=== PATIENT | male | born 1955 | race Caucasian/White ===

== ENCOUNTER 2021-09-07 16:12 | Inpatient (IN) | payer MEDICAID, SELFPAY ==
[~2021-09-07] VITALS: Ht 177.8 cm; Wt 78.9 kg
--- NOTE | 2021-09-07 16:12 | NUR ---
SHANTI WINSLOW TAKEN TO BED 11
[2021-09-07 16:20] VITALS: BP 130/56
--- NOTE | 2021-09-07 16:31 | NUR ---
XRAY AT BEDSIDE
[2021-09-07 17:03] LABS: ALBUMIN 2.1 g/dL (3.4-5.0); ANION GAP 4.1 (8-16); CARBON DIOXIDE 36.7 mmol/L (21-32); CREATININE 0.4 mg/dL (0.6-1.3); POTASSIUM 4.8 mmol/L (3.5-5.1); TOTAL BILIRUBIN 0.4 mg/dL (0.0-1.0)
[2021-09-07 17:41] LABS: BASOPHILS % (AUTO) 0.1 % (0.0-2.0); EOSINOPHILS % (AUTO) 0.1 % (0.0-4.0); LYMPHOCYTES # (AUTO) 0.7 K/uL (2.0-11.5); LYMPHOCYTES % (AUTO) 8.6 % (20.5-51.1); MEAN CORPUSCULAR HEMOGLOBIN 32 pg (27-31); MEAN CORPUSCULAR HGB CONC 33 g/dL (33-37); MEAN CORPUSCULAR VOLUME 94.7 fL (80-94); MONOCYTES # (AUTO) 0.5 K/uL (0.8-1.0); MONOCYTES % (AUTO) 5.5 % (1.7-9.3); NEUTROPHILS # (AUTO) 7.3 K/uL (1.8-7.7); NEUTROPHILS % (AUTO) 85.7 % (42.2-75.2); PLATELET COUNT (AUTO) 314 K/uL (140-450); RED BLOOD CELL COUNT(AUTO) 2.53 MIL/uL (4.20-6.10); RED CELL DISTRIBUTION WIDTH 17.3 % (11.6-13.7); WHITE BLOOD COUNT (AUTO) 8.5 K/uL (4.8-10.8)
[2021-09-07 18:45] LABS: PROTHROMBIN TIME 9.5 secs (10.8-13.4)
[2021-09-07 19:20] LABS: BASOPHILS % (AUTO) 0.3 % (0.0-2.0); HEMATOCRIT 24.9 % (36-52); HEMOGLOBIN 8.1 g/dL (12.0-18.0); LYMPHOCYTES # (AUTO) 0.9 K/uL (2.0-11.5); LYMPHOCYTES % (AUTO) 9.8 % (20.5-51.1); MEAN CORPUSCULAR HEMOGLOBIN 31 pg (27-31); MEAN CORPUSCULAR HGB CONC 33 g/dL (33-37); MONOCYTES # (AUTO) 0.4 K/uL (0.8-1.0); MONOCYTES % (AUTO) 4.3 % (1.7-9.3); NEUTROPHILS # (AUTO) 7.5 K/uL (1.8-7.7); NEUTROPHILS % (AUTO) 85.6 % (42.2-75.2); PLATELET COUNT (AUTO) 312 K/uL (140-450); RED BLOOD CELL COUNT(AUTO) 2.62 MIL/uL (4.20-6.10); RED CELL DISTRIBUTION WIDTH 17.6 % (11.6-13.7); WHITE BLOOD COUNT (AUTO) 8.8 K/uL (4.8-10.8)
--- NOTE | 2021-09-07 19:20 | NUR ---
RECEIVED REPORT FROM AUNDREA GARCIA AND MARLA GARCIA FOR CONTINUATION OF CARE.
--- NOTE | 2021-09-07 19:20 | NUR ---
Pt report given to JENNIFER RN. Transfer of care at this time.
--- NOTE | 2021-09-07 21:07 | NUR ---
PERICARE PROVIDED FOR PATIENT. PATIENT HAD A MEDIUM WHOLE BM WITH SOME BLOOD. ERMD AWARE. CHANGED PATIENT AND REPOSITIONED- PATIENT TOLERATED WELL. SAFETY MEASURES ARE IN PLACE, PATIENT PLACED ON MONITOR AND WILL CONTINUE TO MONITOR PATIENT.
[2021-09-07 22:12] VITALS: BP 92/53
--- NOTE | 2021-09-07 22:12 | NUR ---
RECEIVED PT TRACH TO [employer] R860 VENTILATOR WITH A SHILEY 8.0 DCT SETTINGS AC VT450, RR14, PEEP+5, FIO2 35%. NO SIGNS OF RESPIRATORY DISTRESS NOTED AT THIS TIME PT'S CURRENT SATURATION IS 98%. ANTERIOR AUSCULTATION REVEALED BS COARSE CRACKLES THROUGHOUT, SX MODERATE BRANCH THICK SECRETIONS, LARGE AMOUNT OF YELLOW THICK SECRETIONS DRAINING FROM STOMA. CHANGED DRESSINGS AND TRACH TIES AT THIS TIME. HOB ELEVATEDVENT PLUGGED INTO RED OUTLET. WILL CONTINUE TO MONITOR.
--- NOTE | 2021-09-07 22:41 | NUR ---
ERMD AT BEDSIDE REASSESSING PATIENT AND READINESS TO BE D/C
--- NOTE | 2021-09-07 22:56 | NUR ---
CALLED THE FACILITY, NO ANSWER AT THIS TIME. PLACD ON HOLD FOR 20MIN. WILL CALL AT LATER , AT A MORE CONVINIENT TIME.
--- NOTE | 2021-09-07 22:58 | NUR ---
PRISCILLA COLLECTED AND WALKED TO LAB
--- NOTE | 2021-09-07 23:55 | NUR ---
attempted to suction patient with some success. unable to correct the alarms going off the vent machines. RT called for patient.
--- NOTE | 2021-09-08 01:35 | NUR ---
Renee nava in [facility] - 09/08/21 at 0141 by OMKAR CELESTINE Samaniego to bed 9 to speak to patient about pain medications
--- NOTE | 2021-09-08 01:42 | NUR ---
RT at bedside for patient
--- NOTE | 2021-09-08 02:14 | NUR ---
Patient will be admitted to care of RADHA chavez. Admited to tele. Will go to room 108B. Belongings list completed. Report to RADHA Chavez .
[2021-09-08 02:35] VITALS: BP 150/63
--- NOTE | 2021-09-08 02:45 | NUR ---
PATIENT ARRIVED TO TELEMETRY BED 8 AT 0235 VIA GURNEY ACCOMPANIED BY RT AND ER NURSES. PATIENT IS AWAKE, ALERT, AND COOPERATIVE, ABLE TO FOLLOW COMMAND. RESPIRATION EVEN UNLABORED ON TRACH TO VENT. VENT SETTING AC RT 14V 450 PEEP 5 FIO2 35% SATTING 95%. SKIN IS WARM AND DRY. IV PATENT AND INTACT. LUNGS SOUND CRACKLES TO DIMINISHED BILATERALLY. HEART RATE REGULAR. S1&S2 NOTED. BOWEL SOUND PRESENT IN ALL QUADRANTS. ABDOMEN SOFT AND NON-TENDER. LAST BM UPON ARRIVAL BROWN WITH TINGED OF BLOOD. SACRAL REDNESS NOTED, INCONTINENT DERMATITIS NOTED. RIGHT HEEL DTI NOTED. APPLIED HEEL PROTECTORS. MRSA SWAB DONE. VITALS WERE TAKEN. ORIENT PATIENT TO ROOM, STAFF AND CALL LIGHT. PLAN OF CARE DISCUSSED. ALL SAFETY MEASURES IN PLACE. BED IS AT LOW POSITION. CALL LIGHT WITHIN REACH. WILL CONTINUE TO MONITOR.
--- NOTE | 2021-09-08 02:53 | NUR ---
TRANSFERRED PT TO TELE ROOM 108 WITH NO COMPLICATIONS.
[2021-09-08] MEDS ORDERED: ASCO500T93 PO (03:06)
[2021-09-08] MEDS ORDERED: DOCU-299 GT (03:10)
[2021-09-08] MEDS ORDERED: ACET-10509 PO (03:26)
[2021-09-08] MEDS ORDERED: PRED1TAB2 GT (03:26)
[2021-09-08] MEDS ORDERED: ACET-9882 GT (03:26)
[2021-09-08] MEDS ORDERED: LORA-476 GT (03:26)
[2021-09-08] MEDS ORDERED: FERR-13 GT (03:26)
[2021-09-08] MEDS ORDERED: LANS15EC28 PO (03:34)
[2021-09-08] MEDS ORDERED: AMIO200T66 GT (03:34)
[2021-09-08] MEDS ORDERED: MAGN400S60 GT (03:34)
[2021-09-08] MEDS ORDERED: QUET50TA GT (03:34)
[2021-09-08] MEDS ORDERED: ACET-6763 PO (03:34)
--- NOTE | 2021-09-08 04:20 | NUR ---
VITALS WERE TAKEN.
--- NOTE | 2021-09-08 05:21 | NUR ---
ORAL CARE PROVIDED, SUCTIONED PATIENT OBTAINED MODERATE AMOUNT OF WHITE SECRETION.
--- NOTE | 2021-09-08 07:18 | NUR ---
ENDORSED PATIENT TO DAY SHIFT NURSE FOR CONTINUITY OF CARE
--- NOTE | 2021-09-08 07:35 | NUR ---
RECEIVED REPORT FROM PM SHIFT FOR CONTINUITY OF CARE, PT APPEARS ASLEEP, VSS, NO ACUTE DISTRESS, SAFETY MEASURES MAINTAINED, CALL LIGHT WITHIN REACH, PT STABLE, WILL CONTINUE TO MONITOR
[2021-09-08 07:45] VITALS: BP 132/66
--- NOTE | 2021-09-08 07:45 | NUR ---
RECEIVED ON A [employer] R860 VENTILATOR PLUGGED INTO RED OUTLET TOLERATING WELL WITHOUT ADVERSE REACTIONS NOTED TO A RICKIE DCT #8 AIRWAY SECURED WITH A VIRAL TRACH TIE CUFF PRESSURE CHECKED NOTED AMBU BAG AT BEDSIDE STABLE GOOD CHEST RISE DEEP TRACHEAL SUCTION FOR LARGE THIN YELLOW SECRETIONS AIRWAY PATENT
[2021-09-08 08:00] VITALS: BP 148/70
[2021-09-08] MEDS ORDERED: HYDROcodone/APAP 5/325 MG 1 TAB TAB GT PRN (09:25)
[2021-09-08] MEDS ORDERED: LORazepam 1 MG TAB GT PRN (09:25)
[2021-09-08] MEDS ORDERED: POTASSIUM CHLORIDE 40 MEQ, LIDOCAINE MPF 1% 25 MG in NACL 0.9% 250 ML IV PRN (09:25)
[2021-09-08] MEDS ORDERED: MAG SULF 2000 MG/WATER PREMIX 50 ML IV PRN (09:25)
[2021-09-08] MEDS ORDERED: ONDANSETRON 4 MG/2 ML VIAL IM/IVP PRN (09:25)
[2021-09-08] MEDS ORDERED: SODIUM PHOS / POTASSIUM PHOS 1 PKT PDR PO PRN (09:25)
[2021-09-08] MEDS ORDERED: ACETAMINOPHEN 650 MG/20.3 ML UDC GT PRN (10:00)
--- NOTE | 2021-09-08 10:00 | NUR ---
STABLE GOOD CHEST RISE DEEP TRACHEAL SUCTION FOR COPIOUS THIN YELLOW SECRETIONS AIRWAY PATENT OBTAINED SPUTUM SAMPLE FORWARDED TO LAB
[2021-09-08] MEDS: PANTOPRAZOLE 40 MG INJ VIAL IVP SCH (10:24)
[2021-09-08] MEDS: NACL 0.9% 1,000 ML IV SCH ×2 (10:24→21:35)
--- NOTE | 2021-09-08 10:55 | NUR ---
COLLECTED MRSA AND URINE, PENDING OCCULT BLOOD
[2021-09-08 11:28] LABS: APPEARANCE,URINE CLOUDY (CLEAR); BILIRUBIN,URINE NEGATIVE (NEGATIVE); BLOOD, URINE NEGATIVE (NEGATIVE); COLOR,URINE YELLOW (YELLOW); LEUKOCYTE ESTERASE ,URINE 1+ (NEGATIVE); NITRITE, URINE NEGATIVE (NEGATIVE); PH,URINE 8.5 (5.0-9.0); UGLUCOSE NEGATIVE (NEGATIVE)
[2021-09-08 11:30] LABS: BASOPHILS % (AUTO) 0.2 % (0.0-2.0); EOSINOPHILS % (AUTO) 0.6 % (0.0-4.0); HEMATOCRIT 22.7 % (36-52); HEMOGLOBIN 7.6 g/dL (12.0-18.0); LYMPHOCYTES # (AUTO) 1.6 K/uL (2.0-11.5); MEAN CORPUSCULAR HEMOGLOBIN 32 pg (27-31); MEAN CORPUSCULAR HGB CONC 34 g/dL (33-37); MEAN CORPUSCULAR VOLUME 93.7 fL (80-94); MONOCYTES # (AUTO) 0.7 K/uL (0.8-1.0); MONOCYTES % (AUTO) 9.3 % (1.7-9.3); NEUTROPHILS # (AUTO) 5.1 K/uL (1.8-7.7); NEUTROPHILS % (AUTO) 67.9 % (42.2-75.2); PLATELET COUNT (AUTO) 322 K/uL (140-450); RED BLOOD CELL COUNT(AUTO) 2.43 MIL/uL (4.20-6.10); RED CELL DISTRIBUTION WIDTH 17.5 % (11.6-13.7); WHITE BLOOD COUNT (AUTO) 7.5 K/uL (4.8-10.8)
[2021-09-08 11:33] LABS: ANION GAP 5.8 (8-16); CARBON DIOXIDE 34.8 mmol/L (21-32); CREATININE 0.4 mg/dL (0.6-1.3); POTASSIUM 3.6 mmol/L (3.5-5.1)
[2021-09-08 11:38] LABS: MAGNESIUM 1.7 mg/dL (1.8-2.4); PHOSPHORUS 3.6 mg/dL (2.5-4.9)
[2021-09-08 11:52] LABS: RBC,URINE NONE SEEN /HPF (0-5)
[2021-09-08 11:53] LABS: CALCIUM OXALATE CRYSTALS,UR None Seen /HPF (None Seen); OTHER CRYSTALS,URINE None Seen /HPF (None Seen); TRICHOMONAS,URINE None Seen /HPF (None Seen); TRIPLE PHOSPHATE CRYSTAL,UR None Seen /HPF (None Seen); URIC ACID CRYSTALS,URINE None Seen /HPF (None Seen); YEAST,URINE None Seen /HPF (None Seen)
[2021-09-08 11:57] LABS: COARSE GRANULAR CASTS,URINE None Seen /LPF (None Seen); FINE GRANULAR CASTS,URINE None Seen /LPF (None Seen); HYALINE CASTS, URINE None Seen /LPF (None Seen); OTHER CASTS, URINE None Seen /LPF (None Seen); RED BLOOD CELL CASTS,URINE None Seen /LPF (None Seen); URINE AMORPHOUS URATE None Seen /HPF (None Seen); WAXY CASTS,URINE None Seen /LPF (None Seen)
[2021-09-08 12:00] VITALS: BP 134/57
--- NOTE | 2021-09-08 13:47 | NUR ---
PATIENT HAS BEEN SCREENED AND CATEGORIZED HIGH NUTRITION RISK. PATIENT WILL BE SEEN WITHIN 1-2 DAYS OF ADMISSION. SUE REYES RD
--- NOTE | 2021-09-08 14:10 | NUR ---
WOUND CARE EVALUATION NOTE: REASON FOR EVALUATION: LOW PRABHU SCALE SKIN ASSESSMENT DONE WITH THIS 66 Y/O PT ADMITTED TO [facility] WITH SKIN ALTERATIONS.PT. ADMITTED WITH TRACH AND G-TUBE. ALL ABOVE INFORMATION OBTAINED FROM ADMISSION H&P. PT IS AAX4, ABLE TO COMMUNICATE WITH SIMPLE YES, NO QUESTIONS. SKIN IS WARM AND DRY, UPPER AND LOWER EXTREMITIES WITH ERYTHEMA AND ECCHYMOSIS WHEN ASK IF THAT IS FROM BLOOD DRAW AND IV INSERTIONS, PT. SAID YES. BLE HAIR GROWTH, NO EDEMA. DORSAL PEDAL PULSES PRESENT AND NORMAL. CAPILLARY REFILLED < 2 SEC. X 10 TOES. INCONTINENT OF BOWEL X1 DURING ASSESSMENT. PLAN OF CARE DISCUSSED WITH PRIMARY RN. INTEGUMENTARY: -ORAL MEMBRANE PINK INTACT, LIPS, CHEEKS SKIN DRY, NO OPEN WOUNDS -TRACH SITE ZEKE STOMA SKIN DRY AND CLEAN. SKIN INTACT. - GT SITE ZEKE STOMA WITH SKIN INTACT. -INCONTINENT ASSOCIATE DERMATITIS (IAD) TO: B/L GROINS, SCROTAL AREA , SKIN RED INTACT - INCONTINENT ASSOCIATE DERMATITIS (IAD) SACROCOCCYX MULTIPLE SMALL PIN POINTS EROSIONS, WOUND BED MOIST AND PINK, ZEKE-WOUND SKIN MOIST AND RED -PRESSURE INJURY UN-STAGEABLE, RIGHT HEEL 0.5X0.5CM, WOUND BED IS 100% BROWN ESCHAR TISSUE, DRY,NO ODOR, ZEKE WOUND SKIN MUSHY, NON-BLANCHABLE REDNESS AND INTACT. RECOMMENDATIONS: -APPLY HYDRAGUARD TO BILATERAL UPPER AND LOWER EXTREMITIES, R/L GROINS EXTENDED TO PERINEUM BID AND PRN IF SOILING - APPLY SKIN PREP WIPE TO RIGHT HEEL BID AND SUPERVISOR LACE TEARING -APPLY CALMOSEPTINE CR. TO SACRALCOCCYX MAD AND APPLY FORM DRESSING QD AND PRN IF SOILING -POSITIONING: TURN AND REPOSITION PATIENT Q 2H OR SOONER USE PILLOWS TO KEEP BONY PROMINENCES FROM DIRECT CONTACT WITH SURFACES USE REPOSITIONING WEDGES TO PROVIDE 30-DEGREE ANGLE FOR SIDE LYING POSITIONS OFFLOADING OR FOAM DRESSING TO ALL TUBING TO PREVENT MEDICAL DEVICES RELATED PRESSURE INJURY -RE-EVALUATING AND MANAGING INCONTINENCE MONITOR SKIN CONDITION DURING POSITION CHANGE DO NOT MASSAGE REDNESS, BONY PROMINENCES, DO NOT USE DONUT-TYPE DEVICES FREQUENT ZEKE-CARE AND PROVIDE BARRIER CREAMS PRN IF SOILING MOISTURE CONTROL BY OFFER BED ALCANTARA/URINAL /ABSORBENT PAD TO WICK AND HOLD MOISTURE. MAY OBTAIN ORDER FOR FLEX SEAL, RECTAL BAG OR SAMAYOA CATHETER PER PHYSICIAN ORDER UNLESS OTHERWISE CONTRAINDICATED KEEP SKIN DRY AND PROTECT FROM FRICTION -MANAGE FRICTION/SHEAR/MOBILITY KEEP HOB AT THE LOWEST LEVEL OF ELEVATION NO MORE THAN 30 DEGREE UNLESS OTHERWISE CONTRAINDICATED USE LIFT SHEET OR TRANSFER DEVICE TO MOVE PATIENT AND PREVENT LATERAL SHEER. CONSIDER TRAPEZE IF APPROPRIATE PROTECT HEELS, ELBOWS BONY PROMINENCES WITH SKIN BERRIES OR FOAM DRESSING IF EXPOSED TO FRICTION OFFLOAD BILATERAL HEELS BY PLACING PILLOWS UNDER CALVES AT ALL TIMES, UNLESS OTHERWISE CONTRAINDICATED -PRESSURE REDISTRIBUTION SURFACE THERAPY -NUTRITION: PLEASE FOLLOW RD RECOMMENDATIONS AND OFFER NUTRITION SUPPLEMENTS IF ORDERED. PLEASE CONTACT WOUND CARE NURSE FOR ANY QUESTION AND CHANGE OF WOUND CONDITION.
--- NOTE | 2021-09-08 14:37 | NUR ---
DC PLANNIN YRS OLD MALE PATIENT WAS ADMITTED FROM [facility] WITH A DX OF GI BLEED. PATIENT HAS A HX OF ASTHMA ,CARDIAC DISORDER COPD HTN, DYSPHAGIA AND TRACH TO VENT. CXR SHOWED SCATTERED PERIPHERAL INTERSTITIAL OPACITIES RAPID COVID TEST NEGATIVE. URINE AND SPUTUM CULTURE PENDING. ADMINISTERED IVF AND CONTINUED HOME MEDS. CONSULTED WITH GI. DC PLAN TO GO BACK TO [facility] WHEN STABLE CM TO FOLLOW. Addendum: 09/11/21 at 1113 by Tiana Jeronimo RN DC PLANNING: PATIENT HAS A DC ORDER TO GO BACK TO [facility]. FAXED ALL PAPERWORK. CM TO FOLLOW Addendum: 09/11/21 at 1340 by Tiana Jeronimo RN DC PLANNING: PT IS GOING TO [facility] , CAN GO TO ROOM 2A #TO GIVE REPORT [phone] ARRANGED TRANSPORT WITH [phone] SPOKE WITH [facility] REFERENCE NUMBER [id number] WILL CALL BACK FOR ETA. CM TO FOLLOW Addendum: 09/11/21 at 1626 by Tiana Jeronimo RN DC PLANNING: CALLED [facility] [phone] REF # [id number] STATED STILL ON THE PROCESS AND WILL CALL BACK FOR THE ETA. SONG TO FOLLOW
--- NOTE | 2021-09-08 15:10 | NUR ---
RECEIVED REPORT FROM RADHA ARROYO FOR CONTINUOUS OF CARE.
[2021-09-08 16:00] VITALS: BP 150/62
[2021-09-08] MEDS: FOAM DRESSING TP SCH (16:25)
[2021-09-08] MEDS: MENTHOL/ZINC OXIDE 113 GM TUBE TP SCH (16:26)
--- NOTE | 2021-09-08 19:16 | NUR ---
ENDORSED PT TO CABLE BRAIDER NURSE FOR CONTINUOUS OF CARE
[2021-09-08 20:00] VITALS: BP 157/58
--- NOTE | 2021-09-08 20:00 | NUR ---
RECEIVED REPORT OF PT IN STABLE CONDITION.HE IS TRACH TO VENT PT.NO S/S OF ANY DISTRESS NOTED NOW.VS STABLE HR IS SR.G.TUBE PATENT.IVF OF NS AT 40ML/H INFUSING WELL.WILL CONT.MONITORING.
[2021-09-08] MEDS: DOCUSATE 100 MG/10 ML UDC GT SCH (20:14)
[2021-09-08] MEDS: QUEtiapine FUMARATE 25 MG TAB GT SCH (20:15)
[2021-09-08] MEDS: AMIODARONE 200 MG TAB GT SCH (20:15)
[2021-09-09] VITALS: BP 133/65
--- NOTE | 2021-09-09 | NUR ---
SLEEPING.VS STABLE.RESP.UNLABORED.HR IS SR.NO S/S OF ANY DISTRESS NOTED.
[2021-09-09] MEDS ORDERED: cefTRIAXone 1,000 MG VIAL ONE (01:12)
[2021-09-09] MEDS: HYDRAGUARD CREAM TP SCH ×2 (01:14→13:32)
[2021-09-09 04:00] VITALS: BP 138/67
--- NOTE | 2021-09-09 04:00 | NUR ---
HAD NEW ORDER FOR ROCEPHIN 1 GM IVPB ,IT GIVEN TO PT.SLEEPING W/O ANY DISTRESS.
--- NOTE | 2021-09-09 06:42 | NUR ---
PT HAD BM.STOOL FOR OB SENT TO LAB.
[2021-09-09 07:08] LABS: FERRITIN 174 ng/mL (30-400); FOLIC ACID > 20.00 ng/mL (>3.0); TRANSFERRIN 196 mg/dL (177-329)
--- NOTE | 2021-09-09 07:30 | NUR ---
ENDORSED TO AM SHIFT IN STABLE CONDITION.
[2021-09-09 07:59] LABS: MAGNESIUM 1.7 mg/dL (1.8-2.4); PHOSPHORUS 4.3 mg/dL (2.5-4.9)
[2021-09-09 08:00] VITALS: BP 167/74
[2021-09-09 08:48] LABS: ANION GAP 13.1 (8-16); CARBON DIOXIDE 27.5 mmol/L (21-32); CREATININE 0.4 mg/dL (0.6-1.3); POTASSIUM 3.6 mmol/L (3.5-5.1)
[2021-09-09 08:52] LABS: BASOPHILS % (AUTO) 0.2 % (0.0-2.0); EOSINOPHILS # (AUTO) 0.1 K/uL (0-0.4); EOSINOPHILS % (AUTO) 0.6 % (0.0-4.0); HEMOGLOBIN 8.6 g/dL (12.0-18.0); LYMPHOCYTES # (AUTO) 1.4 K/uL (2.0-11.5); LYMPHOCYTES % (AUTO) 13.1 % (20.5-51.1); MEAN CORPUSCULAR HEMOGLOBIN 32 pg (27-31); MEAN CORPUSCULAR HGB CONC 33 g/dL (33-37); MEAN CORPUSCULAR VOLUME 95.2 fL (80-94); MONOCYTES # (AUTO) 0.6 K/uL (0.8-1.0); MONOCYTES % (AUTO) 5.8 % (1.7-9.3); NEUTROPHILS # (AUTO) 8.6 K/uL (1.8-7.7); NEUTROPHILS % (AUTO) 80.3 % (42.2-75.2); PLATELET COUNT (AUTO) 320 K/uL (140-450); RED BLOOD CELL COUNT(AUTO) 2.73 MIL/uL (4.20-6.10); RED CELL DISTRIBUTION WIDTH 17.9 % (11.6-13.7); WHITE BLOOD COUNT (AUTO) 10.7 K/uL (4.8-10.8)
[2021-09-09] MEDS: DOCUSATE 100 MG/10 ML UDC GT SCH ×2 (08:59→21:01)
[2021-09-09] MEDS: ASCORBIC ACID 500 MG/5 ML ORASYR GT SCH (08:59)
[2021-09-09] MEDS: PANTOPRAZOLE 40 MG INJ VIAL IVP SCH (08:59)
[2021-09-09] MEDS: AMIODARONE 200 MG TAB GT SCH ×2 (09:00→21:01)
--- NOTE | 2021-09-09 10:24 | NUR ---
PT GIVEN BED BATH, ORAL CARE PROVIDED, VSS, TEMP RECHECKED AFTER PRN TYLENOL GIVEN - 98.6, NO ACUTE DISTRESS, SAFETY MEASURES MAINTAINED, WILL CONTINUE TO MONITOR
[2021-09-09 12:00] VITALS: BP 147/65
[2021-09-09] MEDS: FOAM DRESSING TP SCH (13:31)
[2021-09-09] MEDS: MENTHOL/ZINC OXIDE 113 GM TUBE TP SCH (13:32)
--- NOTE | 2021-09-09 14:13 | NUR ---
09/09/21 RD INITIAL ASSESSMENT COMPLETED PLEASE REFER TO NUTRITION ASSESSMENT UNDER CARE ACTIVITY FOR ESTIMATED NUTRITIONAL NEEDS. RD RECOMMENDATIONS: 1. IF/WHEN PT IS MEDICALLY STABLE TO START TUBE FEEDING, CONSIDER STARTING PT ON VITAL AF 1.2 AT GOAL RATE OF 70 ML/HR. -START AT 20 ML/HR AND ADVANCE TOLERATED TO GOAL RATE OR 10 ML Q4H UNTIL GOAL RATE -AT GOAL RATE, TUBE FEEDING WILL PROVIDE 2016 KCAL AND 126 GM OF PROTEIN, WHICH IS ADEQUATE TO MEET 95% OF ESTIMATED KCAL NEEDS AND 100% OF ESTIMATED PROTEIN NEEDS -CONSIDER 150 ML FREE WATER FLUSH 200 ML Q6H 2. IF PT IS NOT APPROPRIATE FOR TUBE FEEDING, CONSIDER TPN/PPN PER MD/PHARMACIST 3. RD WILL F/U 2-3 DAYS; HIGH RISK INDIRA YORK RD
--- NOTE | 2021-09-09 14:36 | NUR ---
PT GIVEN BED BATH, REPOSITIONED, WOUND CARE COMPLETED, VSS, ORAL CARE PROVIDED, NO ACUTE DISTRESS, WILL CONTINUE TO MONITOR. SAFETY MEASURES MAINTAINED.
[2021-09-09 16:00] VITALS: BP 165/63
--- NOTE | 2021-09-09 19:03 | NUR ---
REPORT GIVEN TO RADHA WALLS FOR CONTINUITY OF CARE, VSS, PT STABLE, SAFETY MEASURES MAINTAINED, CALL LIGHT WITHIN REACH.
--- NOTE | 2021-09-09 19:05 | NUR ---
RECEIVED REPORT FROM DAY SHIFT NURSE FOR CONTINUITY OF CARE. PT IS ALERT, AWAKE RESTING ON BED. PT ON TRACH TO VENT, FI02 35%.AFEBRILE, G TUBE IN PLACE. NO FEEDING RUNNING. IV ON L SHOULDER G 22, PATENT AND INTACT.NO S/SX OF DISTRESS. ALL PRECAUTIONS IN PLACE. CALL LIGHT WITHIN REACH.WILL CONTINUE TO MONITOR.
--- NOTE | 2021-09-09 19:30 | NUR ---
PT WAS CLEANED AND REPOSITIONED. PT TOLERATED WELL. WILL CONTINUE TO MONITOR.
[2021-09-09 20:00] VITALS: BP 120/58
--- NOTE | 2021-09-09 21:00 | NUR ---
SCHEDULED MEDICATIONS GIVEN. PT TOLERATED WELL. WILL CONTINUE TO MONITOR.
[2021-09-09] MEDS: QUEtiapine FUMARATE 25 MG TAB GT SCH (21:02)
--- NOTE | 2021-09-09 23:00 | NUR ---
TUBE FEEDING JEVITY 1.2 STARTED. PT TOLERATING WELL.HOB ELEVATED.CALL LIGHT WITHIN REACH. ALL PRECAUTIONS IN PLACE. WILL CONTINUE TO MONITOR.
[2021-09-10] VITALS: BP 127/55
--- NOTE | 2021-09-10 00:14 | NUR ---
PT ASLEEP. VISIBLE CHEST RISE AND FALL NOTED. NO DISTRESS NOTED. WILL CONTINUE TO MONITOR.
[2021-09-10] MEDS: HYDRAGUARD CREAM TP SCH ×2 (01:15→13:00)
--- NOTE | 2021-09-10 03:30 | NUR ---
PT ASLEEP. VISIBLE CHEST RISE AND FALL NOTED. NO DISTRESS NOTED. WILL CONTINUE TO MONITOR.
[2021-09-10 04:00] VITALS: BP 124/60
[2021-09-10] MEDS: MORPHINE SULFATE 2 MG/ML SYR IVP PRN ×2 (05:37→14:38)
--- NOTE | 2021-09-10 06:33 | NUR ---
PT IS STABLE. NO ACUTE EVENTS THROUGHOUT THE NIGHT. NO S/SX OF DISTRESS NOTED. ALL NEEDS ATTENDED. ALL PRECAUTIONS IN PLACE. CALL LIGHT WITHIN REACH. WILL CONTINUE TO MONITOR.
[2021-09-10 07:01] LABS: BASOPHILS % (AUTO) 0.5 % (0.0-2.0); EOSINOPHILS # (AUTO) 0.1 K/uL (0-0.4); EOSINOPHILS % (AUTO) 2.1 % (0.0-4.0); HEMATOCRIT 24.3 % (36-52); LYMPHOCYTES # (AUTO) 1.3 K/uL (2.0-11.5); LYMPHOCYTES % (AUTO) 21.7 % (20.5-51.1); MEAN CORPUSCULAR HEMOGLOBIN 31 pg (27-31); MEAN CORPUSCULAR HGB CONC 33 g/dL (33-37); MEAN CORPUSCULAR VOLUME 94.8 fL (80-94); MONOCYTES # (AUTO) 0.5 K/uL (0.8-1.0); MONOCYTES % (AUTO) 7.9 % (1.7-9.3); NEUTROPHILS % (AUTO) 67.8 % (42.2-75.2); PLATELET COUNT (AUTO) 287 K/uL (140-450); RED BLOOD CELL COUNT(AUTO) 2.56 MIL/uL (4.20-6.10); RED CELL DISTRIBUTION WIDTH 18.2 % (11.6-13.7); WHITE BLOOD COUNT (AUTO) 5.8 K/uL (4.8-10.8)
--- NOTE | 2021-09-10 07:20 | NUR ---
RECEIVED REPORT FROM PM BALJINDER SHELLEY FOR COI
--- NOTE | 2021-09-10 07:21 | NUR ---
RECEIVED REPORT FROM PM SHIFT RN [id number] FOR CONTINUITY OF CARE. PT. CONT. WITH TRACH/VENT SUPPORT. FIO2 355. .ALERT,AWAKE. NOT IN DISTRESS. ALL SAFETY MEASURES IN PLACE. WILL CONTINUE TO MONITOR THE PT.
[2021-09-10 07:23] LABS: ANION GAP 8.2 (8-16); CARBON DIOXIDE 30.1 mmol/L (21-32); CREATININE 0.4 mg/dL (0.6-1.3); POTASSIUM 3.3 mmol/L (3.5-5.1)
[2021-09-10 08:00] VITALS: BP 153/56
[2021-09-10] MEDS: DOCUSATE 100 MG/10 ML UDC GT SCH ×2 (08:29→20:18)
[2021-09-10] MEDS: ASCORBIC ACID 500 MG/5 ML ORASYR GT SCH (08:29)
[2021-09-10] MEDS: AMIODARONE 200 MG TAB GT SCH ×2 (08:30→20:18)
[2021-09-10] MEDS: PANTOPRAZOLE 40 MG INJ VIAL IVP SCH (08:30)
--- NOTE | 2021-09-10 09:07 | NUR ---
ADMINISTERED SCHEDULED MEDICATIONS VIA G TUBE. . PT. TOLERATED WELL . NO RESIDUAL NOTED. NO N/V OBSERVED.. PT. HAS POTASSIUM LEVEL 3.3 TODAY. WILL ADMINISTERED IV KCL PRN ORDER. NOTIFIED PHARMACY TO PREPARE. WILL GIVE [facility] PROVIDE. CONT. MONITORING THE PT..
[2021-09-10] MEDS: NACL 0.9% 1,000 ML IV SCH (09:25)
--- NOTE | 2021-09-10 09:39 | NUR ---
RECEIVED KCL IVPB FROM PHARMACY. STARTED ORDER. WILL CONTINUE TO MONITOR THE PT.
[2021-09-10 12:00] VITALS: BP 134/47
[2021-09-10] MEDS: FOAM DRESSING TP SCH (13:00)
[2021-09-10] MEDS: MENTHOL/ZINC OXIDE 113 GM TUBE TP SCH (13:00)
--- NOTE | 2021-09-10 14:23 | NUR ---
MADE ROUND. SUCTIONED THE PT. VIA TRACH. REPOSITIONED THE PT. MOUTH WORDING FEELS COMFORTABLE. NO NOTED RESP. DISTRESS. SPO2 100%. ALL SAFETY MEASURES IN PLACE. WILL CONTINUE TO MONITOR THE PT.
--- NOTE | 2021-09-10 14:46 | NUR ---
ANSWERED CALL LIGHT. PT. C/O OF BACK PAIN 04/09. MEDICATED WITH IV PAIN MED MORPHIN PRN ORDER. WILL MONITOR THE PT. AND REASSESS .
[2021-09-10 16:00] VITALS: BP 131/61
--- NOTE | 2021-09-10 17:28 | NUR ---
ROUNDED. PT. COMFORTABLY SLEEPING. REASSESSED FOR PAIN. NO S/S OF PAIN OR DISCOMFORT NOTED. REPOSITIONED THE PT. CONT. WITH TRACH/VENT SUPPORT WITH MAINTAINING SP O2 100%. NO S/SX OF RESP. DISTRESS NOTED. ALL SAFETY MEASURES IN PLACE. WILL CONTINUE TO MONITOR THE PT.
--- NOTE | 2021-09-10 19:03 | NUR ---
ENDORSED REPORT TO PM SHIFT RADHA SHELLEY FOR CONTINUITY OF CARE. PT. STABLE.
--- NOTE | 2021-09-10 19:05 | NUR ---
RECEIVED REPORT FROM DAY SHIFT NURSE FOR CONTINUITY OF CARE. PT IS ALERT, AWAKE RESTING ON BED. PT ON TRACH TO VENT, FI02 35%.AFEBRILE, G TUBE IN PLACE. JEVITY 1.2 FEEDING RUNNING @55MLS/HR WITH Q6 WF. IV ON L SHOULDER G 22, PATENT AND INTACT.NO S/SX OF DISTRESS. ALL PRECAUTIONS IN PLACE. CALL LIGHT WITHIN REACH.WILL CONTINUE TO MONITOR.
[2021-09-10 20:00] VITALS: BP 141/67
[2021-09-10] MEDS: QUEtiapine FUMARATE 25 MG TAB GT SCH (20:18)
--- NOTE | 2021-09-10 21:00 | NUR ---
SCHEDULED MEDICATIONS GIVEN. PT TOLERATED WELL. WILL CONTINUE TO MONITOR.
--- NOTE | 2021-09-10 22:30 | NUR ---
PT ASLEEP. VISIBLE CHEST RISE AND FALL NOTED. NO DISTRESS NOTED. WILL CONTINUE TO MONITOR.
[2021-09-11] VITALS: BP 150/69
[2021-09-11] MEDS: MORPHINE SULFATE 2 MG/ML SYR IVP PRN ×3 (00:24→15:58)
--- NOTE | 2021-09-11 00:30 | NUR ---
PT COMPLAINED OF BACK PAIN. PRN PAIN MEDICATION GIVEN. WILL CONTINUE TO MONITOR.
[2021-09-11] MEDS: HYDRAGUARD CREAM TP SCH ×2 (01:13→12:35)
[2021-09-11 04:00] VITALS: BP 140/78
--- NOTE | 2021-09-11 04:00 | NUR ---
PT ASLEEP. VISIBLE CHEST RISE AND FALL NOTED. NO DISTRESS NOTED. WILL CONTINUE TO MONITOR.
[2021-09-11 06:47] LABS: ANION GAP 10.1 (8-16); CARBON DIOXIDE 29.3 mmol/L (21-32); CREATININE 0.3 mg/dL (0.6-1.3); POTASSIUM 4.4 mmol/L (3.5-5.1)
[2021-09-11 07:31] LABS: BASOPHILS % (AUTO) 0.5 % (0.0-2.0); EOSINOPHILS # (AUTO) 0.1 K/uL (0-0.4); HEMATOCRIT 23.1 % (36-52); HEMOGLOBIN 7.6 g/dL (12.0-18.0); LYMPHOCYTES # (AUTO) 1.3 K/uL (2.0-11.5); LYMPHOCYTES % (AUTO) 22.3 % (20.5-51.1); MEAN CORPUSCULAR HEMOGLOBIN 31 pg (27-31); MEAN CORPUSCULAR HGB CONC 33 g/dL (33-37); MEAN CORPUSCULAR VOLUME 94.7 fL (80-94); MONOCYTES # (AUTO) 0.5 K/uL (0.8-1.0); MONOCYTES % (AUTO) 8.3 % (1.7-9.3); NEUTROPHILS # (AUTO) 3.9 K/uL (1.8-7.7); NEUTROPHILS % (AUTO) 66.9 % (42.2-75.2); PLATELET COUNT (AUTO) 273 K/uL (140-450); RED BLOOD CELL COUNT(AUTO) 2.44 MIL/uL (4.20-6.10); RED CELL DISTRIBUTION WIDTH 17.8 % (11.6-13.7); WHITE BLOOD COUNT (AUTO) 5.9 K/uL (4.8-10.8)
--- NOTE | 2021-09-11 07:33 | NUR ---
ENDORSED TO AM SHIFT IN STABLE CONDITION.
--- NOTE | 2021-09-11 07:41 | NUR ---
RECEIVED REPORT FROM PM RN FOR CONTINUITY OF CARE, VSS, REPOSITIONED, NO ACUTE DISTRESS, SAFETY MEASURES MAINTAINED, CALL LIGHT WITHIN REACH, WILL CONTINUE TO MONITOR
--- NOTE | 2021-09-11 07:50 | NUR ---
RECEIVED ON A [employer] R860 VENTILATOR PLUGGED INTO RED OUTLET TOLERATING WELL WITHOUT ADVERSE REACTIONS NOTED TO A [employer] DCT #8 AIRWAY SECURED WITH A VIRAL TRACH TIE CUFF PRESSURE CHECKED NOTED AMBU BAG AT BEDSIDE STABLE "MOUTHING WORDS" GOOD CHEST RISE DEEP TRACHEAL SUCTION FOR MODERATE THIN PALE YELLOW SECRETIONS AIRWAY PATENT Addendum: 09/11/21 at 1203 by Best Watson RT SATURATION 98% ON FIO2 OF 35% PEEP 5cmH2O TITRATED FIO2 TO 30% CRUZ/RN NOTIFIED
[2021-09-11 08:00] VITALS: BP 146/64
[2021-09-11] MEDS: DOCUSATE 100 MG/10 ML UDC GT SCH ×2 (08:30→21:30)
[2021-09-11] MEDS: ASCORBIC ACID 500 MG/5 ML ORASYR GT SCH (08:32)
[2021-09-11] MEDS: PANTOPRAZOLE 40 MG INJ VIAL IVP SCH (08:32)
[2021-09-11] MEDS: AMIODARONE 200 MG TAB GT SCH ×2 (08:32→21:33)
[2021-09-11] MEDS ORDERED: IV Rocephin IV (09:17)
[2021-09-11] MEDS: NACL 0.9% 1,000 ML IV SCH (09:45)
--- NOTE | 2021-09-11 10:46 | NUR ---
PT SUCTIONED, DRESSING CHANGED UNDER TRACH COLLAR, PT STABLE, SAFETY MEASURES MAINTAINED, WILL CONTINUE TO MONITOR
--- NOTE | 2021-09-11 10:59 | NUR ---
EQUAL CHEST RISE GOOD CHEST RISE AND AERATION THROUGHOUT BILATERAL LUNG ALLEN AIRWAY PATENT SLIGHTLY IRRITABLE AT THIS TIME DUE TO BOWEL MOVEMENT CRUZ/RN AWARE
--- NOTE | 2021-09-11 11:12 | NUR ---
PT HAD A BOWEL MOVEMENT, CLEANED, AND REPOSITIONED, SAFETY MEASURES MAINTAINED, WILL CONTINUE TO MONITOR
[2021-09-11 12:00] VITALS: BP 131/63
[2021-09-11] MEDS: FOAM DRESSING TP SCH (12:34)
[2021-09-11] MEDS: MENTHOL/ZINC OXIDE 113 GM TUBE TP SCH (12:34)
--- NOTE | 2021-09-11 13:15 | NUR ---
REPORT GIVEN TO MORENO AT [facility] - PT BEING DISCHARGED ON ABX, VSS, NO ACUTE DISTRESS, SAFETY MEASURES MAINTAINED, WILL CONTINUE TO MONITOR
--- NOTE | 2021-09-11 13:40 | NUR ---
PT WOUND CARE COMPLETED, DRESSINGS CHANGED, DC PICTURES TAKEN, NO ACUTE DISTRESS, VSS, PENDING TRANSPORTATION, WILL CONTINUE TO MONITOR
--- NOTE | 2021-09-11 14:00 | NUR ---
NO APPARENT DISTRESS NOTED GOOD CHEST RISE DEEP TRACHEAL SUCTION FOR MODERATE THIN PALE YELLOW SECRETIONS AIRWAY PATENT
[2021-09-11 16:00] VITALS: BP 137/64
--- NOTE | 2021-09-11 18:11 | NUR ---
CALLED TRANSPORTATION FOR AN UPDATED ETA - STATED THEY ARE UNABLE TO GIVE US TIME , BUT THEY WILL CALL US BACK.
--- NOTE | 2021-09-11 18:40 | NUR ---
CALLED [facility] [employer] CROPS AFTER HOUR, PER CM, TRANSPORT IS ON THE WAY 60-90MINUTES ON ROUTE. WILL ENDORSE
--- NOTE | 2021-09-11 19:30 | NUR ---
RECEIVED PT FROM AM NURSE FOR CONTINUITY OF CARE.PATIENT STABLE AWAITING TRANSPORT TO BE TRANSFERRED TO [facility],
[2021-09-11 20:00] VITALS: BP 131/64
--- NOTE | 2021-09-11 20:30 | NUR ---
TRANSPORT CAME TO PICKUP PT VIA GURNEY, VS BP 131/60 P 73, TEMP98.3,O2 AT 100%. PATIENT IS STABLE
[2021-09-11] MEDS: QUEtiapine FUMARATE 25 MG TAB GT SCH (21:32)
== END 2021-09-11 20:50 | DRG 720 ==
LOC: MED 16:12 → MTU 09-08 01:57
PROVIDERS: ADMIT Hospitalist; ATTEND Hospitalist
PROC: 5A1955Z Respiratory Ventilation, Greater than 96 Consecutive Hours (ICD-10-PCS; principal; 2021-09-07)
DX: A41.9 Sepsis, unspecified organism (principal); J96.20 Acute and chronic respiratory failure, unspecified whether with hypoxia or hypercapnia; E43 Unspecified severe protein-calorie malnutrition; Z99.11 Dependence on respirator [ventilator] status; I48.91 Unspecified atrial fibrillation; K92.2 Gastrointestinal hemorrhage, unspecified; D64.9 Anemia, unspecified; N39.0 Urinary tract infection, site not specified; R13.10 Dysphagia, unspecified; D50.9 Iron deficiency anemia, unspecified; E83.42 Hypomagnesemia; F41.9 Anxiety disorder, unspecified; Z20.822 Contact with and (suspected) exposure to COVID-19; Z99.81 Dependence on supplemental oxygen; Z93.1 Gastrostomy status; Z79.1 Long term (current) use of non-steroidal anti-inflammatories (NSAID); Z79.899 Other long term (current) drug therapy; Z87.891 Personal history of nicotine dependence
CPT/HCPCS: 36415; 71045; 80048; 80053; 81001; 82272; 82607; 82728; 82746; 83540; 83605; 83735; 83880; 84100; 84484; 85025; 85045; 85610; 86886; 86900; 86901; 87070; 87081; 87086; 87205; 89220; 93005; 94002; 94003; 94761; 99285; C9113; J0696; J2001; J2270; J3475; J3480; J7030; J7060

== ENCOUNTER 2021-10-04 12:27 | Inpatient (IN) | payer MEDICAID ==
[~2021-10-04] VITALS: Ht 185.4 cm; Wt 81.6 kg
[~2021-10-04 12:27] MED LIST: ACET-10509 PO; ACET-6763 PO; ACET-9882 GT; AMIO200T66 GT; ASCO500T93 PO; DOCU-299 GT; FERR-13 GT; IV Rocephin IV; LANS15EC28 PO; LORA-476 GT; MAGN400S60 GT; PRED1TAB2 GT; QUET50TA GT
[2021-10-04 12:30] VITALS: BP 109/63
[2021-10-04 12:32] VITALS: BP 109/63
[2021-10-04] MEDS ORDERED: MORPHINE SULFATE 4 MG/ML SYR IVP ONE (12:50)
--- NOTE | 2021-10-04 13:01 | NUR ---
XRAY AT PATIENT BEDSIDE
--- NOTE | 2021-10-04 13:03 | NUR ---
PATIENT BROUGHT IN BY [facility] BY GAIL. PATIENT IS CURRENTLY SINUS TACHY HE HAS A TRACH IN PLACE AND IN TACT AND CONNECTED TO VENT BY RESPIRATORY THERAPY. HE HAS A SACRAL PRESSURE ULCER, AND COMPLAINS OF PAIN FROM PRESSURE ULCER.
[2021-10-04] MEDS ORDERED: NACL 0.9% 1,000 ML IV ONE (13:20)
[2021-10-04] MEDS ORDERED: VANCOMYCIN 1,000 MG in DEXTROSE 5% 250 ML IV ONE (13:25)
[2021-10-04] MEDS ORDERED: LEVOFLOXACIN 750 MG/D5W PREMIX 150 ML IV ONE (13:25)
[2021-10-04] MEDS ORDERED: CEFEPIME 1,000 MG in DEXTROSE 5% 50 ML IV ONE (13:25)
[2021-10-04] MEDS: NACL 0.9% 2,000 ML IV ONE ×2 (13:45→23:39)
[2021-10-04 14:15] LABS: BASOPHILS # (AUTO) 0.1 K/uL (0.00-0.22); BASOPHILS % (AUTO) 0.8 % (0.0-2.0); EOSINOPHILS # (AUTO) 0.1 K/uL (0-0.4); EOSINOPHILS % (AUTO) 1.7 % (0.0-4.0); HEMATOCRIT 30.5 % (36-52); HEMOGLOBIN 9.9 g/dL (12.0-18.0); LYMPHOCYTES % (AUTO) 26.8 % (20.5-51.1); MEAN CORPUSCULAR HEMOGLOBIN 31 pg (27-31); MEAN CORPUSCULAR HGB CONC 32 g/dL (33-37); MEAN CORPUSCULAR VOLUME 95.8 fL (80-94); MONOCYTES # (AUTO) 0.9 K/uL (0.8-1.0); MONOCYTES % (AUTO) 12.5 % (1.7-9.3); NEUTROPHILS # (AUTO) 4.3 K/uL (1.8-7.7); NEUTROPHILS % (AUTO) 58.2 % (42.2-75.2); PLATELET COUNT (AUTO) 358 K/uL (140-450); RED BLOOD CELL COUNT(AUTO) 3.18 MIL/uL (4.20-6.10); RED CELL DISTRIBUTION WIDTH 17.9 % (11.6-13.7); WHITE BLOOD COUNT (AUTO) 7.4 K/uL (4.8-10.8)
[2021-10-04 14:37] LABS: ALBUMIN 2.4 g/dL (3.4-5.0); ANION GAP 7.3 (8-16); CARBON DIOXIDE 34.1 mmol/L (21-32); CREATININE 0.5 mg/dL (0.6-1.3); POTASSIUM 4.4 mmol/L (3.5-5.1); TOTAL BILIRUBIN 0.8 mg/dL (0.0-1.0)
[2021-10-04] MEDS ORDERED: PANTOPRAZOLE 40 MG INJ VIAL IVP ONE (15:00)
[2021-10-04 15:02] LABS: APPEARANCE,URINE CLEAR (CLEAR); BILIRUBIN,URINE NEGATIVE (NEGATIVE); BLOOD, URINE NEGATIVE (NEGATIVE); COLOR,URINE YELLOW (YELLOW); LEUKOCYTE ESTERASE ,URINE NEGATIVE (NEGATIVE); NITRITE, URINE NEGATIVE (NEGATIVE); UGLUCOSE NEGATIVE (NEGATIVE)
[2021-10-04] MEDS ORDERED: FUROSEMIDE 100 MG/10 ML VIAL IVP ONE (15:05)
--- NOTE | 2021-10-04 15:28 | NUR ---
DISTRICT SALES COORDINATOR CALLED TO BEDSIDE PATIENT PRESENTING WITN INCREASED SOB STATES THAT "I CAN'T BREATH" SATURATION 95% ON FIO2 OF 30% PEEP 5cmH2O BREATH SOUNDS COARSE BILATERAL DEEP TRCHEAL SUCTION FOR LARGE THIN TO FROTHY WHITE SECRETIONS AIRWAY PATENT
[2021-10-04 15:48] VITALS: BP 113/72
--- NOTE | 2021-10-04 15:49 | NUR ---
Patient will be admitted to care of DR. JENKINS. Admited to TELE. Will go to room 122A. Belongings list completed. Report GIVEN AT PT BEDSIDE BY RADHA FOX.
[2021-10-04] MEDS ORDERED: ACETAMINOPHEN 325 MG TAB PO PRN (15:50)
[2021-10-04] MEDS ORDERED: SODIUM PHOS / POTASSIUM PHOS 1 PKT PDR PO PRN (15:50)
[2021-10-04] MEDS ORDERED: MAGNESIUM OXIDE 400 MG TAB GT PRN (15:50)
[2021-10-04] MEDS ORDERED: ONDANSETRON 4 MG/2 ML VIAL IM/IVP PRN (15:50)
[2021-10-04] MEDS ORDERED: DOCUSATE SODIUM 100 MG GELCAP PO PRN (15:50)
[2021-10-04] MEDS ORDERED: VANCOMYCIN PER PHARMACY MC PRN (15:55)
[2021-10-04] MEDS ORDERED: DOCUSATE 100 MG/10 ML UDC GT PRN (15:55)
--- NOTE | 2021-10-04 17:35 | NUR ---
TRANSFERRED PATIENT TO [address] REMOVED FROM VENTILATOR PLACED ON SUPPLEMENTAL OXYGEN AT 15 LPM VIA E-TANK TO [facility]/INLINE SUCTION CATHETER/RICKIE #8 TRACHEOSTOMY TUBE BAG DEPRESSION EVERY 6-8 SECONDS TOLERATED TRANSFER WELL WITHOUT COMPLICATIONS NOTE SATURATION 100% HR 152
[2021-10-04 17:37] LABS: MAGNESIUM 1.6 mg/dL (1.8-2.4); PHOSPHORUS 4.8 mg/dL (2.5-4.9)
[2021-10-04] MEDS: PANTOPRAZOLE 80 MG in NACL 0.9% 100 ML IVP SCH (17:55)
[2021-10-04] MEDS ORDERED: VANCOMYCIN 1,500 MG in DEXTROSE 5% 500 ML IV SCH (18:00)
--- NOTE | 2021-10-04 18:15 | NUR ---
RECEIVED REPORT FROM RADHA JALLOH AND STATES PROTONIX IVPB HAS NOT BEEN GIVEN YET. PT AWAKE AND ALERT. ABLE TO USE MOUTH MOVEMENT AND HAND MOVEMENT TO MAKE NEEDS KNOWN. FIO2 40% PEEP 5. TRACH/VENT DEPENDENT. GTUBE LUQ. ABDOMEN DISTENDED. RADHA JALLOH PLACED IN AND OUT CATH AND STATES A SAMAYOA CATHETER IS NEEDED. WOUND PHOTOS TAKEN AND DOCUMENTED IN CHART. IV ON L KNEE #22. PROTONIX STARTED AT 10 ML/HR. NEEDS ALL MET AT THIS TIME. SAFETY MEASURES IN PLACE. WILL ENDORSE POC TO NIGHTSHIFT.
[2021-10-04] MEDS: MORPHINE SULFATE 2 MG/ML SYR IVP PRN (18:57)
--- NOTE | 2021-10-04 19:15 | NUR ---
[facility]
--- NOTE | 2021-10-04 19:20 | NUR ---
RECEIVED PATIENT FROM MORNING NURSE. TRACHE TO VENT SETTING OF 40 FI02, TV 500, RR 14, PEEP 5. PATIENT SEEMS IRRITABLE A, ABLE TO WRITE NEEDS. POINTING TO HIS CATHETER, WANTS IT CHANGED, CONFIRMATION FROM HIS WRITING.A LOT OF PENDING MEDS NOT GIVEN FROM ER. WILL RE-INSERT NEW SAMAYOA.
[2021-10-04 19:30] VITALS: BP 114/65
--- NOTE | 2021-10-04 19:58 | NUR ---
RECEIVED PT TRACH TO VENT WITH A PORTEX 8 ON A [employer] PlanSCAPE R860 VENTILATOR SETTINGS SIMV VT500, RR14, PEEP+5, PS10, FIO2 40%. PT PRESENTS AWAKE, ALERT, IRRITABLE, NOTED TO BE TACHYPNEIC AND TACHYCARDIC, STATES TO BE IN PAIN. CURRENTLY SATING 98%. ANTERIOR AUSCULTATION REVEALED BS CLEAR/DIMINISHED THROUGHOUT ALL LUNG ALLEN, SXN SMALL WHITE FROTHY SECRETIONS. HOB ELEVATED, AMBU BAG AT BEDSIDE, VENT PLUGGED INTO RED OUTLET, ALARMS ARE ON AND AUDIBLE. WILL CONTINUE TO MONITOR. Addendum: 10/04/21 at 2229 by Mack Larkin RT CORRECTION: TRACH TYPE IS A RICKIE Mena
--- NOTE | 2021-10-04 20:29 | NUR ---
NEW SAMAYOA INSERTED, FR 16, ASEPTICALLY. PATIENT TOLERATED IT WELL. PATIENT STATED RELIEF. WILL CONTINUE TO MONITOR AND ASSESS.
[2021-10-04] MEDS ORDERED: CEFEPIME 1,000 MG in DEXTROSE 5% 50 ML IV SCH (21:00)
[2021-10-04] MEDS ORDERED: AMIODARONE 200 MG TAB GT SCH (21:00)
[2021-10-04] MEDS: QUEtiapine FUMARATE 25 MG TAB GT SCH (21:00)
--- NOTE | 2021-10-04 21:17 | NUR ---
CALLED DR DASH FOR DIET ORDER, CODE STATUS AND HR OF 150. ORDERS RECEIVED AND CARRIED OUT. CALLED RT FOR STAT EKG. WILL CONTINUE TO MONITOR PATIENT.
--- NOTE | 2021-10-04 21:19 | NUR ---
EKG DONE WITH NO COMPLICATIONS. RESULTS GIVEN TO RN AND PLACED IN CHART.
--- NOTE | 2021-10-04 21:20 | NUR ---
PER PHARMACY, DISREGARD 1G VANCO ORDERED AND JUST GIVE THE 1500 MG VANCO.
[2021-10-04] MEDS ORDERED: VANCOMYCIN 1,000 MG VIAL ONE (21:39)
[2021-10-04] MEDS ORDERED: VANCOMYCIN 500 MG VIAL ONE (21:39)
[2021-10-04] MEDS ORDERED: CEFEPIME 1,000 MG VIAL ONE (21:43)
[2021-10-04] MEDS ORDERED: DILTIAZEM 25 MG/5 ML VIAL IVP SCH (22:05)
--- NOTE | 2021-10-04 22:30 | NUR ---
PER DR DASH, PUT ON HOLD THE NS 2L BOLUS ORDERED AT ED.
--- NOTE | 2021-10-04 22:42 | NUR ---
TRACH CARE DONE DRESSING, TIES, INNER CANNULA, SUCTION VELOZ, HME ALL CHANGED AT THIS TIME. DEEP TRACHEAL SXN FOR SMALL WHITE/FROTHY THIN SECRETIONS, OROPHARYNX SUCTION FOR SMALL WHITE THICK SECRETIONS. NO DISTRESS AT THIS TIME WILL CONTINUE TO MONITOR.
[2021-10-04] MEDS: VANCOMYCIN 1,500 MG in DEXTROSE 5% 500 ML IV SCH (23:32)
[2021-10-05] VITALS (7 sets, daily range): BP systolic 89–130; BP diastolic 60–69
[2021-10-05] MEDS: MORPHINE SULFATE 2 MG/ML SYR IVP PRN (02:20)
[2021-10-05] MEDS: PANTOPRAZOLE 80 MG in NACL 0.9% 100 ML IVP SCH ×2 (05:06→14:50)
[2021-10-05 06:36] LABS: ANION GAP 5.7 (8-16); CREATININE 0.6 mg/dL (0.6-1.3); POTASSIUM 3.7 mmol/L (3.5-5.1)
[2021-10-05 07:07] LABS: BASOPHILS # (AUTO) 0.1 K/uL (0.00-0.22); BASOPHILS % (AUTO) 0.6 % (0.0-2.0); EOSINOPHILS % (AUTO) 0.2 % (0.0-4.0); HEMATOCRIT 26.4 % (36-52); HEMOGLOBIN 8.8 g/dL (12.0-18.0); LYMPHOCYTES # (AUTO) 1.7 K/uL (2.0-11.5); LYMPHOCYTES % (AUTO) 17.7 % (20.5-51.1); MEAN CORPUSCULAR HEMOGLOBIN 32 pg (27-31); MEAN CORPUSCULAR HGB CONC 33 g/dL (33-37); MONOCYTES # (AUTO) 1.1 K/uL (0.8-1.0); MONOCYTES % (AUTO) 10.9 % (1.7-9.3); NEUTROPHILS # (AUTO) 6.8 K/uL (1.8-7.7); NEUTROPHILS % (AUTO) 70.6 % (42.2-75.2); PLATELET COUNT (AUTO) 359 K/uL (140-450); RED BLOOD CELL COUNT(AUTO) 2.77 MIL/uL (4.20-6.10); WHITE BLOOD COUNT (AUTO) 9.6 K/uL (4.8-10.8)
--- NOTE | 2021-10-05 07:25 | NUR ---
RECEIVED REPORT FROM ARTS MANAGER NURSE FOR CONTINUITY OF CARE. PT AWAKE IN BED. ABLE TO MAKE NEEDS KNOWN BY MOUTHING WORDS AND WRITING ON A PAD. BREATHING SYMMETRICAL ON TRACH TO VENT WITH SETTINGS FIO2 40 PEEP 5 VT 500 RATE 14. DENIES PAIN AT THIS TIME. GT IN LUQ ABDOMEN. WITH LEFT KNEE 22G RUNNING PROTONIX 10CC/HR AND LFA 22G. SAMAYOA CATHETER INTACT AND PATENT DRAINING YELLOW URINE. CALL LIGHT WITHIN REACH. ALL SAFETY MEASURES IN PLACE.
--- NOTE | 2021-10-05 08:16 | NUR ---
PATIENT HAS BEEN SCREENED AND CATEGORIZED HIGH NUTRITION RISK. PATIENT WILL BE SEEN WITHIN 1-2 DAYS OF ADMISSION. RECEIVED CONSULT AND REFERRAL FOR PRESSURE INJURY AND TUBE FEEDING SUE REYES RD
[2021-10-05] MEDS ORDERED: PANTOPRAZOLE 40 MG INJ VIAL IVP SCH (09:00)
[2021-10-05] MEDS: ASCORBIC ACID 500 MG TAB PO SCH (09:37)
[2021-10-05] MEDS: VANCOMYCIN 1,500 MG in DEXTROSE 5% 500 ML IV SCH ×2 (09:56→21:01)
--- NOTE | 2021-10-05 10:00 | NUR ---
PT AWAKE IN BED, ABLE TO MAKE NEEDS KNOWN THRU MOUTHING AND WRITING ON PAD. BREATHING SYMMETRICAL. ENCOURAGED TO ALWAYS CALL FOR ASSISTANCE. CALL LIGHT WITHIN REACH. ALL SAFETY MEASURES IN PLACE.
--- NOTE | 2021-10-05 10:20 | NUR ---
LEFT MESSAGE TO DR JENKINS REGARDING ELEVATED HEART RATE 143BPM, PER MD WILL SEE PATIENT.
[2021-10-05] MEDS: HYDROcodone/APAP 5/325 MG 1 TAB TAB PO PRN ×2 (10:30→20:52)
--- NOTE | 2021-10-05 11:36 | NUR ---
PATIENT HAS BEEN DOING WELL ON SIMV WITH ADEQUATE SPONT TIDAL VOLUMES BUT STATES HE FEELS HE IS SOB - PT LIKELY HAVING SOME ANXIETY AND NOT FEELING LIKE HE IS BREATHING WELL - PT STATES HE FEELS BETTER WITH SMALL CHANGES IN VENTILATOR - LIKELY DUE TO FEELING SCARED NOT RESPIRATORY DIFFICULTIES
--- NOTE | 2021-10-05 11:51 | NUR ---
LATE ENTRY- IV LEVOFLOAXCIN IVPB DISCONTINUED AT 1549. NORMAL SALINE IV FLUIDS DISCONTINUED AT 1549.
--- NOTE | 2021-10-05 13:00 | NUR ---
DR JENKINS AT [facility], MADE AWARE OF ELEVATED HEART RATE BUT LOW BP. ALSO AWARE OF LEAKING SAMAYOA CATHETER, ORDER FOR US AND CONSULT WITH DR FARIA
--- NOTE | 2021-10-05 14:06 | NUR ---
LEFT MESSAGE TO DR MCKENZIE REGARDING CARDIO CONSULT
--- NOTE | 2021-10-05 15:13 | NUR ---
DC PLANNING: THE PATIENT BIBA FROM [facility] [place] WITH C/O TACHYCARDIA, SOB, CHEST PAIN AND PRODUCTIVE COUGH. H/O ASTHMA, CARDIOMYOPATHY, COPD AND HTN. THE PATIENT IS TRACH TO VENT WITH PEG, ALSO HAS A SACRAL DECUBITUS. CXR SHOWS MILD SCATTERED BILATERAL OPACITIES, EKG WNL'S, NS BOLUS ORDERED. CO2 TODAY 35, GAP 5.7, FE+ 48. UA NEGATIVE, STARTED ON VANCO AND LEVAQUIN. ORDERS FOR CONSULTS WITH PULMONOLOGY, UROLOGY, CARDIOLOGY AND GI. CM SPOKE WITH THE PATIENT AT BEDSIDE WHO IS ALERT AND ORIENTED, ABLE TO MOUTH WORDS AND WRITE. THE PATIENT IS PRIMARILY BEDBOUND AT [facility] [place] BECAUSE OF HIS SACRAL DECUBITUS AND STATES THAT P.T. IS WORKING WITH HIM WITH ROM AND WORKING WITH HIS BILAT FOOT DROP. THE PATIENT WOULD LIKE TO GO TO A SUBACUTE CLOSER TO [place] OR [place], CM EXPLAINED THAT INSURANCE MAY NOT COVER FACILITIES IN THOSE AREAS BUT CM WILL SPEAK WITH HIS INSURANCE TO SEE IF THIS IS POSSIBLE. DUNCAN WILL FOLLOW. Addendum: 10/05/21 at 1525 by Caroline Gonzalez CM Amended: Links added. Addendum: 10/06/21 at 1143 by Caroline Gonzalez CM DC PLANNING: PATIENT TRANSFERRED TO ICU FOR HYPOTENSION AND TACHYCARDIA. AMIODARONE GIVEN WITHOUT RESOLUTION, DECISION MADE TO TRANSFER PATIENT FOR CLOSER MONITORING. PATIENT STARTED ON CARDIZEM GTT, HR NOW 100, B/P 85/59 TO 147/71. PATIENT REMAINS TRACH TO VENT ON FIO2 OF 35%. DUNCAN WILL FOLLOW. Addendum: 10/09/21 at 1117 by Caroline Gonzalez CM DC PLANNING: PATIENT WITH DC ORDER TO RETURN TO [facility] [place]. ACCEPTED TO ROOM 2A, DR SHRESTHA TO FOLLOW. DUNCAN STARTED TRANSPORT ARRANGEMENTS THROUGH [employer] ([phone]), WAITING FOR CALL BACK TO CONFIRM COMPANY AND ETA. REFERENCE # [place] [id number]. NUMBER TO CALL REPORT AT [facility] [place] IS [phone]. DUNCAN TO FOLLOW. Addendum: 10/09/21 at 1635 by Caroline Gonzalez CM DC PLANNING: UNABLE TO ARRANGE TRANSPORT WITH [facility], TRANSPORT ARRANGED WITH [facility] ([phone]), ETA [phone]. TRANSPORT ENDORSED TO THE PATIENTS RADHA COSTELLO CM WILL FOLLOW.
--- NOTE | 2021-10-05 15:55 | NUR ---
10/05/21 RD INITIAL ASSESSMENT COMPLETED PLEASE REFER TO NUTRITION ASSESSMENT UNDER CARE ACTIVITY FOR ESTIMATED NUTRITIONAL NEEDS. 1. WHEN/IF MEDICALLY APPROPRIATE TO INITIATE TF, RECOMMEND VITAL AF 1.2 WITH A GOAL RATE OF 60 ML/HR -FWF: 200 ML Q6H OR PER MD -START AT 10 ML/HR AND INCREASE TOLERATED 2. RECOMMEND MÓNICA BID PER RD PROTOCOL -WITH MÓNICA BID, PT WILL RECEIVE > 75% ESTIMATED KCAL AND 100% ESTIMATED PROTEIN NEEDS; ADEQUATE 3. MONITOR GI SYMPTOMS AND GASTRIC RESIDUALS 4. RD TO FOLLOW-UP 2-3 DAYS, HIGH RISK SUE REYES RD
[2021-10-05] MEDS: LEVOFLOXACIN 750 MG/D5W PREMIX 150 ML IV SCH (16:00)
--- NOTE | 2021-10-05 17:05 | NUR ---
LFA 22G NOTED LEAKING AND PT C/O PAIN WHEN FLUSHING. RE-INSERTED ANOTHER IV LINE ON R WRIST 24G WITH PT'S PERMISSION.
--- NOTE | 2021-10-05 17:30 | NUR ---
SEEN BY DR MCKENZIE CURRICULUM DESIGNER. MADE AWARE OF PT'S LOW BP AND HIGH HEART RATE WITH NEW ORDER MADE.
[2021-10-05] MEDS: AMIODARONE 200 MG TAB GT SCH (18:21)
--- NOTE | 2021-10-05 19:44 | NUR ---
RECEIVED PT TRACH TO VENT WITH A SHILEY 8 ON A FANCR[employer]E R860 VENTILATOR SETTINGS SIMV VT500, RR14, PEEP+5, PS10, FIO2 40%. PT PRESENTS AWAKE, ALERT, IRRITABLE, NOTED TO BE TACHYCARDIC, STATES TO BE IN PAIN AND SOB CURRENTLY SATING 100%. RR21, NO USE OF ACCESSORY MUSCLES, NO SINGS OF RESPIRATORY DISTRESS AT THIS TIME. POSSIBLY AGITATED DUE TO HIGH ANXIETY AND HIGH PAIN LEVELS. ANTERIOR AUSCULTATION REVEALED BS CRACKLES AT APICES AND DIMINISHED THROUGHOUT ALL LUNG ALLEN, SXN SMALL WHITE FROTHY THIN SECRETIONS. HOB ELEVATED, AMBU BAG AT BEDSIDE, VENT PLUGGED INTO RED OUTLET, ALARMS ARE ON AND AUDIBLE. WILL CONTINUE TO MONITOR.
--- NOTE | 2021-10-05 19:58 | NUR ---
ENDORSED PT TO RADIOGRAPHER NURSE
--- NOTE | 2021-10-05 20:00 | NUR ---
PATIENT IS LYING ON BED , PATIENT IS ON TRACH TO VENT AOX4, PATIENT IS COMPLAINING ABOUT GENERALIZED PAIN 6/10 , MEDICATED WITH NORCO PER DR ORDER. REPOSITION PATIENT WITH HELP OF FREIGHT WEIGHER , ALL DUE MEDS ARE GIVEN PER DR ORDER, CALL LIGHT IS WITHIN THE REACH , WILL CONTINUE TO MONITOR. +
[2021-10-05] MEDS: QUEtiapine FUMARATE 25 MG TAB GT SCH (20:43)
[2021-10-05] MEDS: PANTOPRAZOLE 40 MG INJ VIAL IVP SCH (20:44)
--- NOTE | 2021-10-05 22:23 | NUR ---
PATIENT HEART RATE WAS 145 AND BP 93/67 END OF THE MORNING SIFT, NURSE NEY GARCIA GAVE AMIODARONE 400 MG ( PER MD MCKENZIE INCREASED FROM 200MG TO 400MG BID) AT 1821. AROUND 1999 WE CHECKED AGAIN AND HR IS 146 AND BP 99/64. TAXTED DR ALICE PAGE ABOUT HR AND BP, REPLIED TO TRANSFER PATIENT TO ICU,
--- NOTE | 2021-10-05 23:27 | NUR ---
REPORTED TO TELE ROOM 122A FOR TRANSPORT OF PT TO ICU07. TRANSPORT PT ON MECHANICAL VENTILATOR, ON 100% FIO2 WITH NO COMPLICATIONS @ 4449. WILL CONTINUE TO MONITOR.
--- NOTE | 2021-10-05 23:30 | NUR ---
PATIENT CAME TO THE UNIT ICU FOR COPD EXACERBATION ALERT ORIENT NOT COMPLAINING OF PAIN VITALS SIGNS IN NORMAL LIMITS S.TACH ON THE MONITOR HE IS ON TRACH TO VENT SIMV MODE R 14 T 500 PEEP 5 PS 10 FIO2 40%
--- NOTE | 2021-10-05 23:30 | NUR ---
PT TRANSFERRED TO THE ICU FOR CLOSE MONITORING PER ORDER FROM MD JENKINS. REPORT GIVEN TO ICU NURSES OVER THE PHONE WELL BEDSIDE.
--- NOTE | 2021-10-05 23:34 | NUR ---
PATIENT ADMITED FROM TELE UNIT //Jah RN
--- NOTE | 2021-10-05 23:45 | NUR ---
SPOKE WITH MOTHER ZULEIMA CHO; PT MOTHER REGARDING PT TRANSFER. SHE VERBALIZED UNDERSTANDING.
[2021-10-05] MEDS ORDERED: DILTIAZEM 125 MG in DEXTROSE 5% 100 ML IV SCH (23:55)
[2021-10-06] VITALS (12 sets, daily range): BP systolic 85–147; BP diastolic 57–77
[2021-10-06] MEDS ORDERED: DILTIAZEM 125 MG/25 ML VIAL IV ONE (00:01)
[2021-10-06 05:52] LABS: BASOPHILS # (AUTO) 0.1 K/uL (0.00-0.22); BASOPHILS % (AUTO) 0.8 % (0.0-2.0); EOSINOPHILS # (AUTO) 0.1 K/uL (0-0.4); HEMATOCRIT 24.3 % (36-52); LYMPHOCYTES # (AUTO) 1.3 K/uL (2.0-11.5); LYMPHOCYTES % (AUTO) 21.2 % (20.5-51.1); MEAN CORPUSCULAR HEMOGLOBIN 31 pg (27-31); MEAN CORPUSCULAR HGB CONC 33 g/dL (33-37); MEAN CORPUSCULAR VOLUME 94.3 fL (80-94); MONOCYTES # (AUTO) 0.8 K/uL (0.8-1.0); MONOCYTES % (AUTO) 11.9 % (1.7-9.3); NEUTROPHILS # (AUTO) 4.1 K/uL (1.8-7.7); NEUTROPHILS % (AUTO) 65.1 % (42.2-75.2); PLATELET COUNT (AUTO) 319 K/uL (140-450); RED BLOOD CELL COUNT(AUTO) 2.58 MIL/uL (4.20-6.10); RED CELL DISTRIBUTION WIDTH 17.9 % (11.6-13.7); WHITE BLOOD COUNT (AUTO) 6.3 K/uL (4.8-10.8)
[2021-10-06] MEDS: MORPHINE SULFATE 2 MG/ML SYR IVP PRN ×4 (06:20→20:24)
[2021-10-06 06:28] LABS: ANION GAP 6.7 (8-16); CARBON DIOXIDE 31.4 mmol/L (21-32); CREATININE 0.5 mg/dL (0.6-1.3); POTASSIUM 3.1 mmol/L (3.5-5.1)
--- NOTE | 2021-10-06 07:25 | NUR ---
RECEIVED PT AWAKE ALERT AND ORIENTED X3. ABLE TO MOUTH WORDS AND MAKE NEEDS KNOWN BY WRITING BOARD. TRACH TO VENT SETTINGS: SIMV VT 500 R14 PEEP5 FIO2 40%. BREATHING EVEN AND UNLABORED. IV ON RIGHT WRIST 24 GUAGE INTACT AND IV ON LEFT LOWER LEG 22 GUAGE INTACT AND PATENT. ABDOMINAL SOUNDS ACTIVE X4 QUADS. GT INTACT AND PATENT. SAMAYOA CATHETER INTACT AND DRAINING YELLOW URINE. CALL LIGHT WITHIN REACH AND ALL SAFETY PRECAUTIONS IN PLACE. WILL CONTINUE TO MONITOR.
--- NOTE | 2021-10-06 07:48 | NUR ---
RECEIVED ON A Unified OfficeSCAPE R860 VENTILATOR PLUGGED INTO RED OUTLET TOLERATING WITHOUT ADVERSE REACTIONS NOTED TO A RICKIE DCT #8 AIRWAY SECURED WITH A VIRAL TRACH TIE CUFF PRESSURE CHECKED NOTED AMBU BAG AT BEDSIDE STABLE GOOD CHEST RISE DEEP TRACHEAL SMALL THIN YELLOW SECRETIONS AIRWAY PATENT
[2021-10-06] MEDS: PANTOPRAZOLE 40 MG INJ VIAL IVP SCH ×2 (08:22→20:24)
[2021-10-06] MEDS: ASCORBIC ACID 500 MG TAB PO SCH (08:22)
[2021-10-06] MEDS: AMIODARONE 200 MG TAB GT SCH ×2 (08:22→20:25)
[2021-10-06] MEDS ORDERED: PHENYLEPHRINE 10 MG/ML VIAL IV PRN (08:25)
[2021-10-06] MEDS: POTASSIUM CHLORIDE 40 MEQ, LIDOCAINE MPF 1% 25 MG in NACL 0.9% 250 ML IV PRN (08:41)
--- NOTE | 2021-10-06 08:42 | NUR ---
LAB AT BEDSIDE FOR VANCO TROUGH.
[2021-10-06] MEDS ORDERED: PHENYLEPHRINE 20 MG in NACL 0.9% 250 ML IV PRN (09:25)
--- NOTE | 2021-10-06 09:49 | NUR ---
REVIEWED WITH DR. CAMILO JENKINS PMX, CURRENT PULMONARY ASSESSMENT, HHN THERAPY AND RESPIRATORY DRUG(S) VORBO: OKAY FOR ROOF PLUMBER TO ORDER; HHN DUONEB Q6WA AND Q4PRN FOR SOB/WHEEZE
--- NOTE | 2021-10-06 10:05 | NUR ---
SEEN AND EXAMINED BY DR. JENKINS.
--- NOTE | 2021-10-06 10:08 | NUR ---
RECEIVED VANCO TROUGH 22.1. SPOKE TO PHARMACIST TO HOLD DOSE AND NEXT DOSE AT 2200.
--- NOTE | 2021-10-06 11:05 | NUR ---
WOUND CARE EVALUATION NOTE: REASON FOR EVALUATION: LOW PRABHU SCALE SKIN ASSESSMENT DONE WITH THIS 66 Y/O PT. ADMITTED WITH TRACH AND G-TUBE. PT IS AAX4, ABLE TO COMMUNICATE WITH LIPS READING SIMPLE YES, NO QUESTIONS. SKIN IS WARM AND DRY, UPPER AND LOWER EXTREMITIES WITH ECCHYMOSIS BLE HAIR GROWTH, NO EDEMA. DORSAL PEDAL PULSES PRESENT AND NORMAL. CAPILLARY REFILLED < 2 SEC. X 10 TOES. F/C PATENT. MUSCLE SPASMA OBSERVED WHEN TURN AND REPOSITION. PT. REFUSES PILLOWS FOR OFFLOADING SACRAL. BILATERAL HEEL OFFLOADING WITH PILLOWS AND HEEL RAISERS. PLAN OF CARE DISCUSSED WITH PRIMARY RN. INTEGUMENTARY: -ORAL MEMBRANE PINK INTACT, LIPS DRY, NO OPEN WOUNDS -TRACH SITE ZEKE STOMA SKIN DRY AND CLEAN. SKIN INTACT. - GT SITE ZEKE STOMA WITH SKIN INTACT. -INCONTINENT ASSOCIATE DERMATITIS (IAD) TO: B/L GROINS, SCROTAL AND SACRALCOCCYX AREA , SKIN RED, MOIST AND INTACT -PRESSURE INJURY UN-STAGEABLE, RIGHT HEEL 1.5X1CM, WOUND BED IS 100% BLACK ESCHAR TISSUE, DRY,NO ODOR, ZEKE WOUND SKIN MUSHY, NON-BLANCHABLE REDNESS AND INTACT. -LEFT HEEL BLANCHABLE REDNESS WITH PEELING CALLUS RECOMMENDATIONS: -APPLY HYDRAGUARD TO BILATERAL UPPER AND LOWER EXTREMITIES, R/L GROINS EXTENDED TO PERINEUM BID AND PRN IF SOILING - APPLY SKIN PREP WIPE TO RIGHT HEEL BID AND TRAINING AND DEVELOPMENT HEAD, HEEL RAISERS TO BILATERAL HEELS -APPLY Z GUARD TO SACRALCOCCYX MAD AND APPLY FORM DRESSING QD AND PRN IF SOILING -POSITIONING: TURN AND REPOSITION PATIENT Q 2H OR SOONER USE PILLOWS TO KEEP BONY PROMINENCES FROM DIRECT CONTACT WITH SURFACES USE REPOSITIONING WEDGES TO PROVIDE 30-DEGREE ANGLE FOR SIDE LYING POSITIONS OFFLOADING OR FOAM DRESSING TO ALL TUBING TO PREVENT MEDICAL DEVICES RELATED PRESSURE INJURY -RE-EVALUATING AND MANAGING INCONTINENCE MONITOR SKIN CONDITION DURING POSITION CHANGE DO NOT MASSAGE REDNESS, BONY PROMINENCES FREQUENT ZEKE-CARE AND PROVIDE BARRIER CREAMS PRN IF SOILING MOISTURE CONTROL BY OFFER BED ALCANTARA/URINAL /ABSORBENT PAD TO WICK AND HOLD MOISTURE. KEEP SKIN DRY AND PROTECT FROM FRICTION -MANAGE FRICTION/SHEAR/MOBILITY KEEP HOB AT THE LOWEST LEVEL OF ELEVATION NO MORE THAN 30 DEGREE UNLESS OTHERWISE CONTRAINDICATED USE LIFT SHEET OR TRANSFER DEVICE TO MOVE PATIENT AND PREVENT LATERAL SHEER. PROTECT HEELS, ELBOWS BONY PROMINENCES WITH SKIN BERRIES OR FOAM DRESSING IF EXPOSED TO FRICTION OFFLOAD BILATERAL HEELS BY PLACING PILLOWS UNDER CALVES AT ALL TIMES, UNLESS OTHERWISE CONTRAINDICATED -PRESSURE REDISTRIBUTION SURFACE THERAPY LEE ANN ISOFLEX MATTRESS -NUTRITION: PLEASE FOLLOW RD RECOMMENDATIONS AND OFFER NUTRITION SUPPLEMENTS IF ORDERED. PLEASE CONTACT WOUND CARE NURSE FOR ANY QUESTION AND CHANGE OF WOUND CONDITION. Addendum: 10/06/21 at 1122 by Gonzalo Hooper RN (Grace) PRESSURE INJURY TX AND PREVENTIONS INTERVENTIONS EXPLAIN TO PT. WITH PRIMARY RN AND WOUND CARE NURSE, PT. REFUSED REPOSITION TO SIDE LYING AND NO PILLOWS FOR OFFLOADING, RISK AND BENEFIT EXPLAINEDX3.
--- NOTE | 2021-10-06 11:23 | NUR ---
SEEN AND EXAMINED BY DR. MAY.
[2021-10-06] MEDS: ALBUTEROL SULFATE/IPRATROPIU 3 ML SOL IH PRN (11:44)
--- NOTE | 2021-10-06 11:45 | NUR ---
RT AT BEDSIDE GIVING BREATHING TREATMENT.
[2021-10-06] MEDS: Z-GUARD PASTE TP SCH (13:41)
[2021-10-06] MEDS: HYDRAGUARD CREAM TP SCH (13:42)
[2021-10-06] MEDS: FOAM DRESSING TP SCH (13:42)
[2021-10-06] MEDS: ALBUTEROL SULFATE/IPRATROPIU 3 ML SOL IH SCH ×2 (13:49→19:34)
--- NOTE | 2021-10-06 13:50 | NUR ---
STABLE GOOD CHEST RISE DEEP TRACHEAL SUCTION FOR MODERATE SEMI THICK YELLOW SECRETIONS AIRWAY PATENT
--- NOTE | 2021-10-06 13:59 | NUR ---
RT AT BEDSIDE.
--- NOTE | 2021-10-06 14:25 | NUR ---
ENDORSED CARE VIA PHONE TO TELE NURSE FOR CONTINUITY OF CARE.
--- NOTE | 2021-10-06 14:45 | NUR ---
PT WAS TRANSPORTED VIA GURNEY WITH TWO RNS AND TWO RT TO TELE BED 108B.
--- NOTE | 2021-10-06 14:58 | NUR ---
PT TRANSFERRED TO MST 108B. PT STABLE
[2021-10-06] MEDS: FUROSEMIDE 20 MG/2 ML VIAL IVP SCH (17:01)
[2021-10-06] MEDS: LEVOFLOXACIN 750 MG/D5W PREMIX 150 ML IV SCH (17:04)
--- NOTE | 2021-10-06 18:00 | NUR ---
RECEIVED AND STARTED G-TUBE FEEDING. PT RESIDUAL 0. STARTED AT 10MLO/HR, WILL INCREASE BY 10 UNTIL GOAL OF 60ML/HR MET. NO S/S OF DISTRESS. CALL LIGHT IN REACH. ALL SAFETY MEASURES IN PLACE
--- NOTE | 2021-10-06 19:34 | NUR ---
RECEIVED PT TRACH TO VENT WITH A SHILEY 8 ON A PrimeloopSCAPE R860 VENTILATOR SETTINGS SIMV VT500, RR14, PEEP+5, PS10, FIO2 28%. PT PRESENTS AWAKE, ALERT, STATES TO BE SOB CURRENTLY SATING 96%, NO USE OF ACCESSORY MUSCLES, NO SINGS OF RESPIRATORY DISTRESS AT THIS TIME. ANTERIOR AUSCULTATION REVEALED BS CLEAR/DIMINISHED THROUGHOUT ALL LUNG ALLEN. HHN TX GIVEN INLINE WITH VENTILATOR, TOLERATED WELL AND IMPROVED SOB. HOB ELEVATED, AMBU BAG AT BEDSIDE, VENT PLUGGED INTO RED OUTLET, ALARMS ARE ON AND AUDIBLE. WILL CONTINUE TO MONITOR.
--- NOTE | 2021-10-06 19:36 | NUR ---
ENDORSED PT TO INFORMATICS PHYSICIAN
--- NOTE | 2021-10-06 20:00 | NUR ---
PT REPORT RECEIVED FROM ADAIR RN. CARE TAKEN OVER. UPON ASSESSMENT PT ANXIOUS, RESTLESS. WITH PAIN - PT GUARDING AND RIGID WITH ANY ATTEMPT TO REPOSITION. PT REFUSED TO BE REPOSITIONED UPON ASSESSMENT. EDUCATION PROVIDED TO PATIENT REGARDING SKIN ISSUES AND PREVENTION OF SKIN BREAKDOWN. WILL GIVE PAIN MED PER MD ORDER AND OFFER TO REPOSITION PT AGAIN. PT VITALS STABLE. TRACHED - SIMV 28% O2 TV 500 RATE 14 PEEP 5 PS 10. PT WITH VALENTINE IN HAND AND PT ABLE TO UTILIZE. TF TO GTUBE- VITAL AF RATE INCREASED TO 20CC/HR AND WILL INCREASE BY 10CC/HR TO GOAL RATE OF 60CC TOLERATED. NO RESIDUAL PRIOR TO INCREASING RATE TO 20CC ON THIS ASSESSMENT. PT WITH SAMAYOA, URINE YELLOW AND CLEAR. IV TO LEFT KNEE 22G SL. IV TO RT WRIST 24G PATENT, WNL. WILL CONTINUE TO MONITOR.
[2021-10-06] MEDS: QUEtiapine FUMARATE 25 MG TAB GT SCH (20:23)
[2021-10-06] MEDS ORDERED: VANCOMYCIN 1,000 MG in DEXTROSE 5% 250 ML IV SCH (22:00)
--- NOTE | 2021-10-06 22:00 | NUR ---
pt sleeping. trach to vent, breathing with vent. no distress. will continue to monitor.
[2021-10-07] VITALS: BP 116/64
--- NOTE | 2021-10-07 01:00 | NUR ---
Pt continues to sleep without any distress. Will continue to monitor.
[2021-10-07] MEDS: HYDRAGUARD CREAM TP SCH ×2 (01:03→13:39)
[2021-10-07] MEDS: Z-GUARD PASTE TP SCH ×2 (01:03→13:39)
[2021-10-07] MEDS: ALBUTEROL SULFATE/IPRATROPIU 3 ML SOL IH SCH ×3 (01:08→19:00)
--- NOTE | 2021-10-07 03:07 | NUR ---
Pt sleeping. No distress. tube feed 2cc residual. Increased rate to 40cc/HR. goal 600cc. Will continue to monitor.
[2021-10-07] MEDS: MORPHINE SULFATE 2 MG/ML SYR IVP PRN ×3 (03:31→18:00)
[2021-10-07 04:00] VITALS: BP 116/64
[2021-10-07] MEDS: HYDROcodone/APAP 5/325 MG 1 TAB TAB PO PRN ×2 (04:16→14:52)
--- NOTE | 2021-10-07 04:52 | NUR ---
Pt awake, alert. Suctioned inline trach, secretions thin, pale yellow with some blood tinge, moderate amount. Tolerated well. Repositioned. TF up to 50cc/HR. Goal rate 60cc. Will continue to monitor.
--- NOTE | 2021-10-07 06:40 | NUR ---
Pt awake, resting using Yankauer for oral suctioning. Inline secretions moderate amt, thin and pale yellow, intermittent blood tinged. Vitals stable throughout shift. Pain controlled with Morphine and [place] per MD orders. TF at goal rate of 60cc/HR. Continue to reinforce need for pt to allow turning to prevent further skin breakdown. Pt resistant to turning at times during this shift. Will endorse care to dayshift RN.
[2021-10-07 07:15] LABS: BASOPHILS # (AUTO) 0.1 K/uL (0.00-0.22); BASOPHILS % (AUTO) 0.6 % (0.0-2.0); EOSINOPHILS # (AUTO) 0.1 K/uL (0-0.4); EOSINOPHILS % (AUTO) 0.7 % (0.0-4.0); HEMATOCRIT 25.4 % (36-52); HEMOGLOBIN 8.3 g/dL (12.0-18.0); LYMPHOCYTES # (AUTO) 1.5 K/uL (2.0-11.5); LYMPHOCYTES % (AUTO) 19.1 % (20.5-51.1); MEAN CORPUSCULAR HEMOGLOBIN 31 pg (27-31); MEAN CORPUSCULAR HGB CONC 33 g/dL (33-37); MEAN CORPUSCULAR VOLUME 94.4 fL (80-94); MONOCYTES % (AUTO) 12.6 % (1.7-9.3); NEUTROPHILS # (AUTO) 5.4 K/uL (1.8-7.7); PLATELET COUNT (AUTO) 302 K/uL (140-450); RED BLOOD CELL COUNT(AUTO) 2.69 MIL/uL (4.20-6.10); RED CELL DISTRIBUTION WIDTH 17.4 % (11.6-13.7); WHITE BLOOD COUNT (AUTO) 8.1 K/uL (4.8-10.8)
--- NOTE | 2021-10-07 07:20 | NUR ---
RECEIVED REPORT FROM ASSISTANT HALL DIRECTOR NURSE FOR CONTINUITY OF CARE. PT IS RESTING IN BED AND IN NO SIGN OF DISTRESS. PT HAS A 24G ON RIGHT HAND AND A 22 G ON LEFT KNEE WITH SALINE LOCK. PT IS ON TRACH TO VENT WITH SETTINGS OF SIMV VC AT 28%, TV OF 500, RATE OF 14 AND PEEP OF 5. PT HAS A SAMAYOA IN PLACE AND INTACT. PT ALSO HAS A G TUBE WITH FEEDINGS RUNNING VITAL 1.2 AT 60 ML/H WITH WATER FLUSHES OF 200 ML Q6H. SACRAL STAGE 1 WOUND, RIGHT HEEL DTI AND RASH ON ZEKE AREA. ALL SAFETY PRECAUTIONS IN PLACE AND WILL CONTINUE TO MONITOR.
[2021-10-07 07:34] LABS: ANION GAP 9.7 (8-16); CARBON DIOXIDE 29.6 mmol/L (21-32); CREATININE 0.6 mg/dL (0.6-1.3); POTASSIUM 3.3 mmol/L (3.5-5.1)
[2021-10-07 08:00] VITALS: BP 127/65
[2021-10-07] MEDS: ALBUTEROL SULFATE/IPRATROPIU 3 ML SOL IH PRN (08:06)
[2021-10-07] MEDS: PANTOPRAZOLE 40 MG INJ VIAL IVP SCH ×2 (09:13→20:54)
[2021-10-07] MEDS: FERROUS SULFATE 300 MG/5 ML UDC GT SCH (09:13)
[2021-10-07] MEDS: FUROSEMIDE 20 MG/2 ML VIAL IVP SCH ×2 (09:13→17:15)
[2021-10-07] MEDS: AMIODARONE 200 MG TAB GT SCH ×2 (09:13→20:54)
[2021-10-07] MEDS: ASCORBIC ACID 500 MG TAB PO SCH (09:14)
--- NOTE | 2021-10-07 09:25 | NUR ---
PT GIVEN ALL MEDICATIONS AND PT TOLERATED WELL. WILL CONTINUE TO MONITOR.
--- NOTE | 2021-10-07 10:15 | NUR ---
(10/07/21) RD FOLLOW UP COMPLETED PLEASE REFER TO NUTRITION PROGRESS NOTE UNDER CARE ACTIVITY FOR ESTIMATED NUTRITION NEEDS. RD RECOMMENDATIONS: 1. CONTINUE VITAL AF 1.2 WITH A GOAL RATE OF 60 ML/HR -FWF: 200 ML Q6H OR PER MD 2. CONTINUE MÓNICA BID PER RD PROTOCOL -WITH MÓNICA BID, PT WILL RECEIVE > 75% ESTIMATED KCAL AND 100% ESTIMATED PROTEIN NEEDS; ADEQUATE 3. MONITOR GI SYMPTOMS AND GASTRIC RESIDUALS 4. RD TO FOLLOW-UP 2-3 DAYS, HIGH RISK LILLIAN ROBERTSON, , RDN
--- NOTE | 2021-10-07 11:40 | NUR ---
PT REFUSED BEDBATH. ACCORDING TO PT, BEDBATH WAS GIVEN EARLIER THIS MORNING. WILL CONTINUE TO MONITOR.
[2021-10-07 12:00] VITALS: BP 136/66
[2021-10-07] MEDS: FOAM DRESSING TP SCH (13:38)
[2021-10-07 16:00] VITALS: BP 129/55
[2021-10-07] MEDS: LEVOFLOXACIN 750 MG/D5W PREMIX 150 ML IV SCH (16:40)
--- NOTE | 2021-10-07 17:30 | NUR ---
TALKED TO DR. DASH VIA PHONE AND DR. DASH ORDERED K DUR 40 MEQ PO FOR PT DUE TO POTASSIUM OF 3.3. ADMINISTERED THE K DUR ORDERED.
[2021-10-07] MEDS ORDERED: POTASSIUM CHLORIDE 10 MEQ TABER PO ONE ×2 (17:40→17:58)
--- NOTE | 2021-10-07 19:25 | NUR ---
ENDORSED CARE TO ROTARY SHEAR CUTTER NURSE FOR CONTINUITY OF CARE.
[2021-10-07 20:00] VITALS: BP 94/50
[2021-10-07] MEDS: QUEtiapine FUMARATE 25 MG TAB GT SCH (20:54)
[2021-10-08] VITALS (7 sets, daily range): BP systolic 100–138; BP diastolic 41–70
[2021-10-08] MEDS: MORPHINE SULFATE 2 MG/ML SYR IVP PRN ×5 (00:25→20:26)
[2021-10-08] MEDS: HYDRAGUARD CREAM TP SCH ×2 (00:27→13:41)
[2021-10-08] MEDS: Z-GUARD PASTE TP SCH ×2 (00:28→13:41)
[2021-10-08] MEDS: HYDROcodone/APAP 5/325 MG 1 TAB TAB PO PRN ×4 (01:52→18:13)
[2021-10-08] MEDS: ALBUTEROL SULFATE/IPRATROPIU 3 ML SOL IH SCH ×3 (06:49→20:00)
--- NOTE | 2021-10-08 06:49 | NUR ---
RECEIVED ON A HackHandsSCAPE R860 VENTILATOR PLUGGED INTO RED OUTLET TOLERATING WELL WITHOUT ADVERSE REACTIONS NOTED TO A RICKIE DCT#8 AIRWAY SECURED WITH A VIRAL TRACH TIE AMBU BAG AT BEDSIDE RESTING COMFORTABLY GOOD CHEST OLGA DEEP TRACHEAL SUCTION FOR MODERATE SEMI THICK PALE YELLOW SECRETIONS AIRWAY PATENT
[2021-10-08 07:56] LABS: BASOPHILS % (AUTO) 0.5 % (0.0-2.0); EOSINOPHILS # (AUTO) 0.1 K/uL (0-0.4); EOSINOPHILS % (AUTO) 1.7 % (0.0-4.0); HEMATOCRIT 25.8 % (36-52); HEMOGLOBIN 8.5 g/dL (12.0-18.0); LYMPHOCYTES # (AUTO) 1.6 K/uL (2.0-11.5); LYMPHOCYTES % (AUTO) 27.5 % (20.5-51.1); MEAN CORPUSCULAR HEMOGLOBIN 31 pg (27-31); MEAN CORPUSCULAR HGB CONC 33 g/dL (33-37); MEAN CORPUSCULAR VOLUME 93.7 fL (80-94); MONOCYTES # (AUTO) 0.8 K/uL (0.8-1.0); MONOCYTES % (AUTO) 13.6 % (1.7-9.3); NEUTROPHILS # (AUTO) 3.2 K/uL (1.8-7.7); NEUTROPHILS % (AUTO) 56.7 % (42.2-75.2); PLATELET COUNT (AUTO) 282 K/uL (140-450); RED BLOOD CELL COUNT(AUTO) 2.75 MIL/uL (4.20-6.10); RED CELL DISTRIBUTION WIDTH 17.9 % (11.6-13.7); WHITE BLOOD COUNT (AUTO) 5.7 K/uL (4.8-10.8)
--- NOTE | 2021-10-08 08:00 | NUR ---
RECEIVED REPORT FROM Docker. PT A/O X3. TRACH/VENT DEPENDENT. RT AT BEDSIDE. RR EVEN & UNLABORED. FIO2 @ 28%. WRITTING BOARD AND PENCIL PROVIDED FOR PT. YAO VIA GRAVITY. R HAND #24 SL AND L KNEE #22 SL. GTUBE ON LUQ WITH GTUBE FEEDING RUNNING. PT REPOSITIONED. TOLERATED WELL. NEEDS ALL MET AT THIS TIME. SAFE PRECAUTIONS IN PLACE. WILL MONITOR CLOSELY.
[2021-10-08 08:12] LABS: ANION GAP 8.8 (8-16); CARBON DIOXIDE 30.4 mmol/L (21-32); CREATININE 0.5 mg/dL (0.6-1.3); POTASSIUM 3.2 mmol/L (3.5-5.1)
--- NOTE | 2021-10-08 09:00 | NUR ---
PT REPOSITIONED. PILLOW PLACED BLE. HOB ELEVATED. VALENTINE WITHIN REACH FOR PT TO SELF-SUCTION ORAL. CALL LIGHT WITHIN REACH. PT TOLERATING GTUBE FEEDING. NEEDS ALL MET AT THIS TIME. HOURLY ROUNDS CONDUCTED. Addendum: 10/08/21 at 1849 by Agency Nurse 25, RN RN PT REPOSITIONED. PILLOW PLACED BLE. HOB ELEVATED. VALENTINE WITHIN REACH FOR PT TO SELF-SUCTION ORAL. CALL LIGHT WITHIN REACH. PT TOLERATING GTUBE FEEDING. PT REFUSED DOCUSATE SODIUM. EXPLAINED REASON FOR STOOL SOFTENER HOWEVER, PT STILL REFUSES. NEEDS ALL MET AT THIS TIME. HOURLY ROUNDS CONDUCTED.
--- NOTE | 2021-10-08 09:30 | NUR ---
GTUBE FEEDING WITH <5 ML RESIDUAL. HOB ELEVATED. TOLERATING GTUBE FEEDING. SAFETY MEASURES IN PLACE.
[2021-10-08] MEDS: FERROUS SULFATE 300 MG/5 ML UDC GT SCH (10:09)
[2021-10-08] MEDS: AMIODARONE 200 MG TAB GT SCH ×2 (10:10→20:48)
[2021-10-08] MEDS: ASCORBIC ACID 500 MG TAB PO SCH (10:10)
[2021-10-08] MEDS: PANTOPRAZOLE 40 MG INJ VIAL IVP SCH ×2 (10:10→21:00)
[2021-10-08] MEDS: FUROSEMIDE 20 MG/2 ML VIAL IVP SCH ×2 (10:11→18:12)
--- NOTE | 2021-10-08 11:30 | NUR ---
PT WITH FACIAL GRIMACE. POINTING AT RLE. PRN PAIN MED GIVEN. PT REPOSITIONED. NEEDS ALL MET AT THIS TIME SAFETY MEASURES IN PLACE.
--- NOTE | 2021-10-08 11:40 | NUR ---
NO EVIDENCE OF RESPIRATORY DISTRESS NOTED EQUAL CHEST RISE DEEP MODERATE SEMI THICK YELLOW SECRETIONS AIRWAY PATENT
[2021-10-08] MEDS: FOAM DRESSING TP SCH (13:41)
--- NOTE | 2021-10-08 14:30 | NUR ---
PRN PAIN MED GIVEN BEFORE BED BATH. BED BATH GIVEN. HOB ELEVATED. GTUBE FEEDING RESTARTED. NEEDS ALL MET AT THIS TIME. SAFETY MEASURES IN PLACE. WILL MONITOR CLOSELY.
[2021-10-08] MEDS ORDERED: POTASSIUM CHLORIDE 20% 40 MEQ/15 ML UDC PO ONE (14:35)
[2021-10-08] MEDS: POTASSIUM CHLORIDE 40 MEQ, LIDOCAINE MPF 1% 25 MG in NACL 0.9% 250 ML IV PRN (14:40)
[2021-10-08] MEDS ORDERED: AMIO200T10 GT (14:58)
[2021-10-08] MEDS ORDERED: LEVO-315 PO (15:01)
[2021-10-08] MEDS ORDERED: ALBU3SOL83 IH (15:03)
--- NOTE | 2021-10-08 15:45 | NUR ---
PT SUCTIONED. THICK YELLOW SECRETIONS NOTED. FIO2@ 28%. HOB PRN PAIN MED GIVEN. PT C/O PAIN SIGNALING WITH HAND OF PAIN RADIATING UP ARM. PT WITH MOUTH MOVEMENT STATING, "STOP!" PT IN DISTRESS. FACIAL GRIMACING NOTED. PT REFUSING POTASSIUM IVPB, IVPB STOPPED. WILL ADMINISTER POTASSIUM VIA GTUBE PER MD ORDER. PT MOUTH MOVEMENT STATING, "RT". CONTACTED RT. NEEDS ALL MET AT THIS TIME. SAFETY PRECAUTIONS IN PLACE. WILL CONTINUE TO MONITOR.
[2021-10-08] MEDS: LEVOFLOXACIN 750 MG/D5W PREMIX 150 ML IV SCH (16:14)
[2021-10-08] MEDS ORDERED: POTASSIUM CHLORIDE 20% 40 MEQ/15 ML UDC GT ONE (16:15)
--- NOTE | 2021-10-08 18:00 | NUR ---
GTUBE WITH <5 ML RESIDUAL. GTUBE FEEDING CONTINUED. HOB ELEVATED. NO SOB OR RESPIRATORY DISTRESS. PT ABLE TO SELF SUCTION WHEN NEEDED. NEEDS ALL MET. SAFETY MEASURES IN PLACE. WILL MONITOR CLOSELY.
--- NOTE | 2021-10-08 18:43 | NUR ---
CONTACTED REGARDING PT REFUSAL TO LEAVE. SPOKE WITH SHEET MANUFACTURING SUPERVISOR LUIS FERNANDO REGARDING PT REFUSAL TO LEAVE. SHEET MANUFACTURING SUPERVISOR STATES TO KEEP PT TILL CASE MANAGEMENT CAN FIND A PLACE PT IS WILLING TO GO. CALLED [facility] TO CANCEL TRANSPORTATION.
--- NOTE | 2021-10-08 19:33 | NUR ---
REPORT GIVEN TO [facility] FOR CONTINUITY OF CARE.
--- NOTE | 2021-10-08 20:00 | NUR ---
RECEIVED BEDSIDE REPORT FROM DAY RN REGARDING THE PATIENT FOR CONTINUITY OF CARE. PATIENT AWAKE, ALERT, ORIENTEDX3, ON TRACH TO VENT, ABLE TO MAKE NEEDS KNOWN. PATIENT CALLED USING THE CALL LIGHT SYSTEM. PATIENT COMPLAINING THAT HE WANTED TO BE SUCTIONED AND ALSO PULLED HIS TRACH TUBING OUT. PATIENT GETS REALLY IRRITABLE WITH THE STAFF AND SOMETIMES THROWS A TANTRUM BY KEEP ON HITTING THE CALL LIGHT SYSTEM OR PULLING HIS TRACH TUBING AND WILL DEMAND TO CALL THE R.T. BECAUSE HE COULDN'T BREATHE. EDUCATED THE PATIENT NOT TO PULL OUT HIS TRACH TUBING ESPECIALLY WHEN HE GETS IRRITATED AND MADE AWARE THAT ITS NOT GOING TO DO HIM GOOD AND WILL MAKE MORE HARM TO HIS CONDITION. PATIENT SEEMS TO LISTENED AND DON'T SEE HIM PULLING HIS TRACH TUBING OUT ANYMORE. OTHERWISE NO SIGN AND SYMPTOMS OF DISTRESS NOTED. PT ON TRACH TO VENT SETTING WITH FIO2-28%, SATING 97%. VSS, AFEBRILE. SR ON TELE MONITOR, HR- 86. GTF INFUSING ORDERED. NO RESIDUAL NOTED. PATIENT REQUESTED TO HAVE HIS MORPHINE. WILL GIVE ORDERED. CALL LIGHT WITHIN REACH. WILL CONTINUE POC AND MONITORING.
--- NOTE | 2021-10-08 20:30 | NUR ---
MEDICATED THE PATIENT WITH MORPHINE ORDERED AND PER PT REQUEST. PATIENT IV GETTING IRRITATED. TRIED TO PLACED A NEW IV LINE BUT NOT SUCCESSFUL BECAUSE PT VEIN KEEPS ON BLOWING. PATIENT REFUSED TO PLACE A NEW IV LINE AND STATED WILL JUST USE AND KEEP THE OLD IV.
[2021-10-08] MEDS: QUEtiapine FUMARATE 25 MG TAB GT SCH (20:48)
--- NOTE | 2021-10-08 22:00 | NUR ---
ALL DUE MEDICATION GIVEN. NO ADVERSE DRUG REACTION NOTED. WILL CONTINUE TO OBSERVE THE PATIENT.
[2021-10-09] VITALS (7 sets, daily range): BP systolic 107–154; BP diastolic 55–95
--- NOTE | 2021-10-09 | NUR ---
PATIENT VSS, AFEBRILE, SATING 98% ON VENT SETTING , FIO2-28%. NO COMPLAIN OF PAIN AT THIS TIME. WILL CONTINUE TO MONITOR THE PATIENT.
[2021-10-09] MEDS: MORPHINE SULFATE 2 MG/ML SYR IVP PRN ×4 (00:43→17:29)
[2021-10-09] MEDS: HYDRAGUARD CREAM TP SCH ×2 (00:47→13:36)
[2021-10-09] MEDS: Z-GUARD PASTE TP SCH ×2 (00:47→13:37)
--- NOTE | 2021-10-09 01:47 | NUR ---
MEDICATED THE PATIENT WITH MORPHINE EARLIER. NOT IN ANY DISTRESS. PATIENT ASLEEP AT THIS TIME. VISIBLE CHEST RISE AND FALL NOTED. WILL CONTINUE TO MONITOR THE PATIENT.
--- NOTE | 2021-10-09 04:00 | NUR ---
PT ASLEEP AND NOT ON ANY DISTRESS. VSS, AFEBRILE, SATING 97% ON TRACH TO VENT SETTING FIO2, 28%. NO COMPLAIN OF PAIN AT THIS TIME. CALL LIGHT WITHIN REACH.
--- NOTE | 2021-10-09 06:00 | NUR ---
NO ACUTE EVENT THROUGHOUT THE NIGHT. PATIENT STABLE. NOT IN ANY DISTRESS AND NO COMPLAIN AT THIS TIME. WILL ENDORSE THE PATIENT TO THE ONCOMING RN FOR CONTINUITY OF CARE.
[2021-10-09 07:11] LABS: BASOPHILS # (AUTO) 0.1 K/uL (0.00-0.22); BASOPHILS % (AUTO) 0.8 % (0.0-2.0); EOSINOPHILS # (AUTO) 0.2 K/uL (0-0.4); EOSINOPHILS % (AUTO) 3.3 % (0.0-4.0); HEMATOCRIT 26.8 % (36-52); HEMOGLOBIN 8.9 g/dL (12.0-18.0); LYMPHOCYTES % (AUTO) 14.9 % (20.5-51.1); MEAN CORPUSCULAR HEMOGLOBIN 31 pg (27-31); MEAN CORPUSCULAR HGB CONC 33 g/dL (33-37); MEAN CORPUSCULAR VOLUME 93.1 fL (80-94); MONOCYTES # (AUTO) 0.7 K/uL (0.8-1.0); MONOCYTES % (AUTO) 10.8 % (1.7-9.3); NEUTROPHILS # (AUTO) 4.8 K/uL (1.8-7.7); NEUTROPHILS % (AUTO) 70.2 % (42.2-75.2); PLATELET COUNT (AUTO) 316 K/uL (140-450); RED BLOOD CELL COUNT(AUTO) 2.88 MIL/uL (4.20-6.10); RED CELL DISTRIBUTION WIDTH 17.8 % (11.6-13.7); WHITE BLOOD COUNT (AUTO) 6.9 K/uL (4.8-10.8)
[2021-10-09 07:15] LABS: ANION GAP 8.1 (8-16); CARBON DIOXIDE 30.4 mmol/L (21-32); CREATININE 0.4 mg/dL (0.6-1.3); POTASSIUM 3.5 mmol/L (3.5-5.1)
--- NOTE | 2021-10-09 07:15 | NUR ---
RECEIVED REPORT FROM POTATO CHIP SORTER NURSE. PT IS AWAKE. TRACH TO VENT, WITH FIO2 AT 28%, BREATHING UNLABORED. PT IS BEDBOUND. AOX3.INCONTINENT OF THE BOWEL AND BLADDER. SKIN IS WARM. IV SITE ON LEFT FA, 22G SALINE LOCKED.PT. IS STABLE. WILL CONTINUE TO MONITOR.
[2021-10-09] MEDS: ALBUTEROL SULFATE/IPRATROPIU 3 ML SOL IH SCH ×3 (07:52→19:04)
[2021-10-09] MEDS: FERROUS SULFATE 300 MG/5 ML UDC GT SCH (09:01)
[2021-10-09] MEDS: PANTOPRAZOLE 40 MG INJ VIAL IVP SCH ×2 (09:02→20:10)
[2021-10-09] MEDS: ASCORBIC ACID 500 MG TAB PO SCH (09:09)
[2021-10-09] MEDS: HYDROcodone/APAP 5/325 MG 1 TAB TAB PO PRN ×2 (09:09→14:41)
[2021-10-09] MEDS: AMIODARONE 200 MG TAB GT SCH (09:10)
[2021-10-09] MEDS: FUROSEMIDE 20 MG/2 ML VIAL IVP SCH (09:11)
--- NOTE | 2021-10-09 11:00 | NUR ---
PT AWAKE, BREATHING UNLABORED. WILL CONTINUE TO MONITOR.
[2021-10-09] MEDS: FOAM DRESSING TP SCH (13:35)
--- NOTE | 2021-10-09 15:00 | NUR ---
PT LYING ON HIS BED, AWAKE. BREATHING UNLABORED. WILL CONTINUE TO MONITOR.
--- NOTE | 2021-10-09 15:01 | NUR ---
DC PLANNING PATIENT IS A 66 YR OLD MALE WHO ARRIVED TO [facility] [facility] [place] RATE ON 10/04/21 SW ATTEMPTED TO MEET WITH CLIENT AT BEDSIDE HOWEVER, CLIENT IS TRAYC VENT DEPENDENT. PATIENT PROVIDED SW WITH PERMISSION TO CALL EMERGENCY CONTACT. SW OUTREACHED TO EMERGENCY CONTACT ZULEIMA CHO (MOTHER) FOR THE PURPOSE OF DISCUSSING AND GATHERING COLLATERAL INFORMATION. MOTHER REPORTS THAT SHE IS EMERGENCY CONTACT FOR CLIENT WELL MINDY MOE (PATIENTS BROTHER). SW INQUIRED ON A.D HOWEVER, MOTHER DENIED CURRENTLY HAVING ONE IN PLACE. SW ENCOURAGED PATIENTS MOTHER TO SPEAK WITH PATIENT AND TO MAKE DECISIONS WHEN APPROPRIATE FOR FAMILY. MOTHER WAS RECEPTIVE. PATIENTS MOTHER WAS UNSURE HOW LONG CLIENT HAS BE[place] [facility] SW OUTREACHED TO [facility] TO DISCUSS AND GATHER COLLATERAL INFORMATION. LANA FROM [facility] [place] THAT CLIENT HAS BEEN IN SKILLED CARE SINCE 09/08/21 AND RECEIVES PT/OT/ST. LANA REPORTS PATIENT REQUIRES ASSISTANCE WITH ADL'S. LANA REPORTS THAT PATIENT CAN RETURN TO [facility]. SW WILL FOLLOW UP NEEDED.
[2021-10-09] MEDS: ALBUTEROL SULFATE/IPRATROPIU 3 ML SOL IH PRN (15:03)
[2021-10-09] MEDS: LEVOFLOXACIN 750 MG/D5W PREMIX 150 ML IV SCH (17:29)
--- NOTE | 2021-10-09 19:35 | NUR ---
PT ENDORSED TO FINANCIAL PLANNING ANALYST NURSE FOR CONTINUITY OF CARE. POC DISCUSSED.
--- NOTE | 2021-10-09 20:00 | NUR ---
GET REPORT FROM MORNING NURSE , PATIENT IS LYING ON BED ,PATIENT IS ON TRACH VENT, PATIENT IS ALERT AND ORIENTED TIME 3, VITAL SIGN IS WITHIN THE RANGE ,ALL DUE MEDS ARE GIVEN DR PER DR ORDER, CALL LIGHT WITHIN THE REACH WILL CONTINUE TO MONITOR.
[2021-10-09] MEDS: QUEtiapine FUMARATE 25 MG TAB GT SCH (20:18)
[2021-10-09] MEDS ORDERED: AMIODARONE 200 MG TAB GT SCH (21:00)
[2021-10-10] VITALS: BP 127/55
--- NOTE | 2021-10-10 01:00 | NUR ---
PATIENT IS LYING ON BED , VITAL SIGN IS WITHIN THE NORMAL RANGE , NO ANY COMPLAINING OF PAIN AT THIS TIME , ALL DUE MEDS ARE GIVEN DR PER DR ORDER, PATIENT IS CHANGED AND REPOSITION WITH HELP OF ROTOR COIL TAPER AND NEW DRESSING IS DONE ON SACRAL, CALL LIGHT IS WITHIN THE REACH WILL CONTINUE TO MONITOR
[2021-10-10] MEDS: ALBUTEROL SULFATE/IPRATROPIU 3 ML SOL IH PRN (01:36)
[2021-10-10] MEDS: Z-GUARD PASTE TP SCH (02:19)
[2021-10-10] MEDS: HYDRAGUARD CREAM TP SCH (02:19)
--- NOTE | 2021-10-10 02:30 | NUR ---
PATIENT COMPLAIN OF 8/10 PAIN, MEDICATION GIVEN, WILL CONTINUE TO MONITOR.
[2021-10-10] MEDS: MORPHINE SULFATE 2 MG/ML SYR IVP PRN (02:37)
--- NOTE | 2021-10-10 03:33 | NUR ---
GIVE THE REPORT TO NURSE WESLEY FROM [facility], PATIENT IS STABLE ALERT AND ORIENTED X3.VITAL SIGH IS WITHIN THE NORMAL RANGE , PATIENT LEFT AT THIS TIME AT 0333 WITH NURSE WESLEY AND TWO OTHER STAFF.
[2021-10-10] MEDS ORDERED: FUROSEMIDE 40 MG TAB GT SCH (09:00)
== END 2021-10-10 03:35 | DRG 720 ==
LOC: MED 12:27 → MTU 15:49 → MIC 10-05 23:08 → MTU 10-06 14:40
PROVIDERS: ADMIT Hospitalist; ATTEND Hospitalist
PROC: 5A1955Z Respiratory Ventilation, Greater than 96 Consecutive Hours (ICD-10-PCS; principal; 2021-10-04)
DX: A41.9 Sepsis, unspecified organism (principal); J96.20 Acute and chronic respiratory failure, unspecified whether with hypoxia or hypercapnia; J95.851 Ventilator associated pneumonia; J44.0 Chronic obstructive pulmonary disease with (acute) lower respiratory infection; E43 Unspecified severe protein-calorie malnutrition; I48.20 Chronic atrial fibrillation, unspecified; K92.2 Gastrointestinal hemorrhage, unspecified; L89.152 Pressure ulcer of sacral region, stage 2; J44.9 Chronic obstructive pulmonary disease, unspecified; I10 Essential (primary) hypertension; I48.91 Unspecified atrial fibrillation; Z20.822 Contact with and (suspected) exposure to COVID-19; E83.42 Hypomagnesemia; D50.9 Iron deficiency anemia, unspecified; J44.1 Chronic obstructive pulmonary disease with (acute) exacerbation; M53.3 Sacrococcygeal disorders, not elsewhere classified; R13.10 Dysphagia, unspecified; Z79.01 Long term (current) use of anticoagulants; Z79.891 Long term (current) use of opiate analgesic; Z79.899 Other long term (current) drug therapy; Z68.23 Body mass index [BMI] 23.0-23.9, adult; Z93.0 Tracheostomy status
CPT/HCPCS: 36415; 51702; 71045; 76856; 80048; 80053; 80202; 81003; 82272; 83540; 83605; 83735; 83880; 84100; 84484; 85025; 85610; 85730; 87081; 89055; 93005; 94002; 94003; 94640; 96361; 96365; 96375; 99291; C9113; J0692; J1940; J1956; J2001; J2270; J3370; J3480; J3490; J7030; J7060; Q0092

== ENCOUNTER 2021-12-01 12:02 | Emergency (ER) | payer MEDICAID ==
[~2021-12-01] VITALS: Ht 182.9 cm; Wt 99.8 kg
[~2021-12-01 12:02] MED LIST changes: -ACET-10509 PO; +ALBU3SOL83 IH; +AMIO200T10 GT; -AMIO200T66 GT; -IV Rocephin IV; +LEVO-315 PO
--- NOTE | 2021-12-01 12:02 | NUR ---
KAREN MOSER VIA GURNEY TO BED 01.
[2021-12-01 12:10] VITALS: BP 81/35
[2021-12-01] MEDS ORDERED: NACL 0.9% 1,000 ML IV SCH (12:20)
[2021-12-01] MEDS ORDERED: NACL 0.9% 500 ML IV ONE (12:25)
--- NOTE | 2021-12-01 12:25 | NUR ---
BLOOD SAMPLE HANDED TO CPT SPENCER AT ER BEDSIDE
--- NOTE | 2021-12-01 12:27 | NUR ---
BP 69/36 MAP 46; DR. HAGER NOTIFIED
[2021-12-01] MEDS ORDERED: ASPIRIN 325 MG TAB PO ONE (12:30)
[2021-12-01] MEDS ORDERED: NOREPINEPHRINE 4 MG in DEXTROSE 5% 250 ML IV ONE (12:30)
[2021-12-01] MEDS ORDERED: NOREPINEPHRINE 4 MG/4 ML VIAL IV ONE (12:32)
[2021-12-01] MEDS ORDERED: HEPARIN PER PHARMACY MC ONE (12:35)
[2021-12-01] MEDS ORDERED: hePARIN / DEXT 5% PREMIX 250 ML IV ONE (12:35)
[2021-12-01] MEDS ORDERED: ASPIRIN 81 MG TAB.CHEW ONE (12:35)
--- NOTE | 2021-12-01 12:35 | NUR ---
Renee nava in [facility] - 12/01/21 at 1320 by HEIDI BP 69/36 MAP 46; DR. ALLEY DARBY
--- NOTE | 2021-12-01 12:35 | NUR ---
LEVOPHED 4MG @ 10MCG/MIN
[2021-12-01] MEDS ORDERED: CRUSHER, PILL MC ONE (12:36)
[2021-12-01 12:48] LABS: BASOPHILS % (AUTO) 0.2 % (0.0-2.0); EOSINOPHILS % (AUTO) 0.1 % (0.0-4.0); HEMATOCRIT 23.6 % (36-52); HEMOGLOBIN 7.6 g/dL (12.0-18.0); LYMPHOCYTES # (AUTO) 0.7 K/uL (2.0-11.5); LYMPHOCYTES % (AUTO) 5.5 % (20.5-51.1); MEAN CORPUSCULAR HEMOGLOBIN 28 pg (27-31); MEAN CORPUSCULAR HGB CONC 32 g/dL (33-37); MEAN CORPUSCULAR VOLUME 88.2 fL (80-94); MONOCYTES # (AUTO) 1.1 K/uL (0.8-1.0); MONOCYTES % (AUTO) 8.5 % (1.7-9.3); NEUTROPHILS # (AUTO) 11.3 K/uL (1.8-7.7); NEUTROPHILS % (AUTO) 85.7 % (42.2-75.2); PLATELET COUNT (AUTO) 449 K/uL (140-450); RED BLOOD CELL COUNT(AUTO) 2.68 MIL/uL (4.20-6.10); RED CELL DISTRIBUTION WIDTH 15.5 % (11.6-13.7); WHITE BLOOD COUNT (AUTO) 13.2 K/uL (4.8-10.8)
--- NOTE | 2021-12-01 12:55 | NUR ---
RAD AT BEDSIDE
[2021-12-01 13:03] VITALS: BP 70/39
[2021-12-01 13:03] LABS: ANION GAP 9.6 (8-16); CREATININE 2.1 mg/dL (0.6-1.3); TOTAL BILIRUBIN 0.3 mg/dL (0.0-1.0)
[2021-12-01 13:10] LABS: MAGNESIUM 2.6 mg/dL (1.8-2.4); PHOSPHORUS 7.6 mg/dL (2.5-4.9)
[2021-12-01 13:11] LABS: POTASSIUM 6.6 mmol/L (3.5-5.1)
[2021-12-01 13:13] LABS: PROTHROMBIN TIME 10.6 secs (10.8-13.4)
[2021-12-01] MEDS ORDERED: DEXTROSE 50% 50 ML SYR IVP ONE (13:15)
[2021-12-01] MEDS ORDERED: CALCIUM GLUC 1 GM/50 mL NS BAG 50 ML IV ONE (13:15)
[2021-12-01] MEDS ORDERED: INSULIN REGULAR, HUMAN 100 UNIT/ML VIAL SUBQ ONE (13:15)
[2021-12-01] MEDS ORDERED: PIPERACILLIN/TAZOBACTAM 3.375 GM in DEXTROSE 5% 50 ML IV ONE (13:15)
[2021-12-01] MEDS ORDERED: FUROSEMIDE 40 MG/4 ML VIAL IVP ONE (13:15)
[2021-12-01] MEDS ORDERED: VANCOMYCIN 1,000 MG in DEXTROSE 5% 250 ML IV ONE (13:15)
--- NOTE | 2021-12-01 13:24 | NUR ---
DR HAGER AT BEDSIDE FOR CENTRAL LINE PLACEMENT
--- NOTE | 2021-12-01 13:28 | NUR ---
RT AT BEDSIDE
[2021-12-01] MEDS ORDERED: INSULIN REGULAR, HUMAN 100 UNIT/ML VIAL IVP ONE (13:35)
--- NOTE | 2021-12-01 13:54 | NUR ---
[facility] at bedside
--- NOTE | 2021-12-01 13:55 | NUR ---
[facility] at bedside for CVP placement verification
--- NOTE | 2021-12-01 13:57 | NUR ---
Dr. Gongora at bedside; central line OK to use
--- NOTE | 2021-12-01 14:09 | NUR ---
Patient to be transferred to [facility]. Is being transferred due to HIGHER LEVEL OF CARE. Receiving facility has accepting physician and available space. ER physician has signed transfer form. Patient or responsible constitution party has agreed to transfer and signed form. Patient belongings inventoried and will be sent with patient. Copy of nursing notes, lab reports, EKG, Physicians Orders and X-rays to be sent with patient. Report called to ZEUS GARCIA at receiving facility. [facility] ambulance service has been called for transfer. ETA is 10MINUTES.
[2021-12-01 14:21] LABS: CREATINE KINASE MB 0.8 ng/mL (0-3.6)
--- NOTE | 2021-12-01 14:26 | NUR ---
[facility] TEAM LEAVING WITH PT AT THIS TIME.
--- NOTE | 2021-12-01 15:15 | NUR ---
STATUS UPDATE GIVEN TO SHOSHANA FROM [facility].
--- NOTE | 2021-12-01 15:34 | NUR ---
RECEIVED CALL FROM GALVANIZER PT IS INBOUND TRACH TO O2. SOB W/ AMBU BAGGING, PROBABLE VENT REQUIRED. UPON ARRIVAL PT IS PLACED ON PRVC 18 500 +5 32%, PT TOLERATES WELL BUT HAS STEMI. I ASSISTED DR. HAGER DURING CENTRAL LINE PLACEMENT THE TRACH TIE WAS OBSTRUCTIVE. PT TRANSFERRED TO [facility] FOR HIGHER LEVEL OF CARE.
== END 2021-12-01 14:26 | disposition short-term general hospital (02) ==
LOC: MED 12:02
DX: I21.11 ST elevation (STEMI) myocardial infarction involving right coronary artery (principal); A41.9 Sepsis, unspecified organism; I25.10 Atherosclerotic heart disease of native coronary artery without angina pectoris; I50.21 Acute systolic (congestive) heart failure; I50.84 End stage heart failure; J45.909 Unspecified asthma, uncomplicated; J44.9 Chronic obstructive pulmonary disease, unspecified; E87.5 Hyperkalemia; J95.851 Ventilator associated pneumonia; R65.21 Severe sepsis with septic shock; I11.0 Hypertensive heart disease with heart failure; Z98.890 Other specified postprocedural states
CPT/HCPCS: 36415; 36556; 36600; 71045; 80053; 82550; 82553; 82803; 83605; 83735; 83880; 84100; 84484; 85025; 85610; 85730; 87040; 93005; 96365; 96366; 96374; 96375; 96376; 99291; J0610; J1644; J1815; J1940; J3490; J7060; 96361